=== PATIENT | male | born 1985 ===

== ENCOUNTER 2024-09-15 23:10 | Emergency (ER) | payer OTHER, SELFPAY ==
[2024-09-15 23:21] VITALS: BP 130/85; PULSE 97; O2SAT 96; BMI 31.3
--- NOTE | 2024-09-15 23:38 | XR_ITS ---
The [address] [address] Patient Name: BOZENA SEO MRN: [id number] date: 1985 Sex: M Assigned Patient Location: ER Current Patient Location: ER Accession/Order Number: [id number] Exam Date: 09/15/2024 23:44 Report Date: 09/16/2024 00:28 At the request of: MELANY MADRIGAL Procedure: XR thoracic spine 2V PLAIN FILM OF THE THORACIC SPINE. HISTORY: Back pain. Patient fell in the shower now complaining of upper back pain in right hand pain. TECHNIQUE: 3 views of the thoracic spine are submitted for review. COMPARISON: None. FINDINGS: Only a portion of the thoracic spine is seen on the lateral view, which limits evaluation. There is no evidence for acute fracture. The bone mineralization is decreased.. Disc spaces demonstrate degenerative change.. Vertebral body heights are maintained. Normal thoracic kyphosis is demonstrated. XR/XR thoracic spine 2V IMPRESSION: 1. No plain film evidence of acute fracture to the visualized portions of the thoracic spine. However, only a portion of the thoracic spine is within the [id number], please correlate with patient's point tenderness. CT scan may help better delineate. 2. If there is any clinical concern for radiating radiculopathy, MRI may help better delineate disc pathology. Electronically authenticated by: ANABELLE BOWEN Date: 09/16/2024 00:28
--- NOTE | 2024-09-15 23:38 | XR_ITS ---
The [address] [address] Patient Name: BOZENA SEO MRN: [id number] date: 1985 Sex: M Assigned Patient Location: ER Current Patient Location: ER Accession/Order Number: [id number] Exam Date: 09/15/2024 23:44 Report Date: 09/16/2024 00:29 At the request of: MELANY MADRIGAL Procedure: XR hand RT min 3V EXAM: XR hand RT min 3V HISTORY: fall COMPARISON: None. TECHNIQUE: 3 view right hand FINDINGS: No acute fracture, subluxation or dislocation. Well-preserved joint spaces and hand and wrist. Normal bone mineralization. No osseous lesion. Chronic deformity fifth metacarpal consistent with old healed fracture with slight posterior bowing. Normal soft tissues. No retained opaque foreign body or air in the tissues. No focal swelling. XR/XR hand RT min 3V IMPRESSION: 1. No acute bone or joint findings. 2. Changes of old healed fifth metacarpal fracture. Electronically authenticated by: RONEL SCHAFER Date: 09/16/2024 00:29
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
== END 2024-09-16 00:56 | disposition home or self-care (01) ==
PROVIDERS: Emergency Provider Emergency Medicine
DX: S20.229A Contusion of unspecified back wall of thorax, initial encounter (principal); S60.221A Contusion of right hand, initial encounter; W19.XXXA Unspecified fall, initial encounter
CPT/HCPCS: 72070; 73130; 99283

== ENCOUNTER 2024-09-21 10:54 | Emergency (ER) | payer OTHER, SELFPAY ==
[2024-09-21 11:02] VITALS: BP 134/88; PULSE 72; TEMP 36.7; O2SAT 99; BMI 31.7
--- NOTE | 2024-09-21 11:13 | PC.NURSE ---
no hematoma observed to back of head, skin intact and no redness, bruising or swelling to neck and back area. pt ambulating upon arrival and ROM with neck wnl. bilat pupils PERRLA with assessment. Alert, appropriate and oriented.
--- OUTSIDE RECORDS SUMMARY | 2024-09-21 11:35 | XMS_ITS | CCD ---
Author Organization [facility] Care Team Providers Care Urology Teacher Name Role Phone Unavailable Primary Care Provider UnavailLEONIE Ibanez Attending Unavailable SELF, REFERRED Primary Care Unavailable SELF, REFERRED Referring Unavailable LEONIE LEDEZMA Admitting Unavailable SELF, REFERRED Primary Care Unavailable SELF, REFERRED Referring Unavailable LEONIE LEDEZMA Admitting Unavailable LEONIE LEDEZMA Attending Unavailable Unavailable Primary Care Provider Unavailabl e Barron [facility] Pr ovider Dr. Maria Elena Orr Primary Care Provider Barron [facility] Pr ovider Barron [facility], [facility] Primary Care Pr ovider Katherine Benson Primary Care Provider [phone] MATEO FERRER Attending Unavailable KATHERINE BENSON [facility] Unavailable BARRON, ALLISAN S Primary Care Unavailabl RENALDO Dennison Referring Unavailable TANGELA JOHNSON Referring Unavailable BARRON, ALLISAN S Primary Care Unavailabl e BARRON, ALLISAN S Primary Care Unavailabl e RENALDO RICE Referring Unavailable BARRON, ALLISAN S Primary Care Unavailabl e BARRON, ALLISAN S Referring Unavailabl e BARRON, ALLISAN S Primary Care Unavailabl e BARRON, ALLISAN S Referring Unavailabl e BARRON, ALLISAN S Primary Care Unavailabl e BARRON, ALLISAN S Referring Unavailabl e BARRON, ALLISAN S Primary Care Unavailabl e DORIS RAINEY Attending Unavailable KEV FLORES Attending Unavailable BARRON, ALLISAN S Primary Care Unavailabl e LIVIA HERNANDEZHEN Referring Unavailable FEDERICO HERNANDEZ Attending Unavailable 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 UnavailSABINA Madrigal Admitting Unavailable SABINA GRAHAM Attending Unavailable ARMANDO ALEXIS [facility] Unavailabl e Allergies Allergy Classification Reported Allergen(s) Allergy Type Date of Onset Reaction(s) Facility (1 source) Citalopram Drug Allergy 01-22-2021 [place] (1 source) Escitalopram Drug Allergy 12-11-2020 [place] (1 source) FLUoxetine Drug Allergy 06-03-2021 [place] Medications Current Medications Medication Drug Class(es) Dates Sig (Normalized) Sig (Original) acetaminophen 300 mg / codeine phosphate 30 mg oral tablet (1 source) Opioid Agonist Start: 01-19-2021 End: 01-24-2021 take 1 tablet by mouth every six hours as needed for pain acetaminophen-code ine (TYLENOL/CODEINE #3) 300-30 MG per tablet Indications: Sprain of left ankle, unspecified ligament, initial encounter Take 1 tablet by mouth every 6 hours as needed for Pain for up to 5 days. 20 tablet 0 01/19/2021 01/24/2021 Active [id number] 200 actuat albuterol 0.09 mg/actuat metered dose inhaler (17 sources) beta2-Adrenergic Agonist Start: 11-18-2023 take 2 puff(s) by mouth every six hours albuterol sulfate HFA (PROVENTIL;VENTOLI N;PROAIR) 108 (90 Base) MCG/ACT inhaler Indications: Medication refill inhale 2 puffs by mouth every 6 hours if needed 18 g 5 11/18/2023 Active Start: 10-20-2022 take 2 puff(s) by mo uth every six hours albuterol sulfate HFA (PROVENTIL;VENTOLIN;PROAIR) 108 (90 Base) MCG/ACT inhaler Indications: Medication refill inhale 2 puffs by mouth every 6 hours if needed 18 g 5 10/20/2022 Active Start: 05-16-2022 albuterol sulf ate HFA (PROVENTIL;VENTOLIN;PROAIR) 108 (90 Base) MCG/ACT inhaler Indications: Medication refill Ventolin HFA 90 mcg/actuation aerosol inhaler 18 g 5 05/16/2022 Active Start: 08-12-2021 take 2 puff(s) by mo [facility] every four hours albuterol (PROVENTIL HFA;VENTOLIN HFA) 9 0 mcg/actuation inhaler Indications: Chest tightness inhale 2 puffs by mouth and INTO THE LUNGS every 4 hours if needed 18 g 1 08/12/2021 Active Start: 11-27-2020 albuterol (PRO VENTIL,VENTOLIN) 2.5 mg /3 mL (0.083 %) nebulizer solution Indications: 2019 novel coronavirus disease (COVID-19) Inhale 3 mL (2.5 mg total) by nebulization every 6 (six) hours as needed for wheezing or shortness of breath. 360 mL 0 11/27/2020 Active 24 hr amphetamine aspartate 6.25 mg / amphetamine sulfate 6.25 mg / dextroamphetamine saccharate 6.25 mg / dextroamphetamine sulfate 6.25 mg extended release oral capsule (20 sources) Central Nervous System Stimulant Start: 04-09-2024 take 1 capsule by mouth once daily amphetamine-dextroamphetamine (ADDERALL XR) 25 MG extended release capsule Indications: Attention deficit hyperactivity disorder (ADHD), unspecified ADHD type Take 1 capsule by mouth daily for 30 days. Max Daily Amount: 25 mg 30 capsule 04/09/2024 Active Start: 09-22-2022 take 1 tablet by krys once daily amphetamine-dextroamphetamine (ADDERALL) 15 MG tablet take 1 tablet by mouth in IN THE AFTERNOON daily 0 09/22/2022 Active take 1 capsule by mo [facility] once daily in the morning, then take 1 capsule by mouth every twenty-four hours amphetamine-dextroamphetamine XR (ADDERA LL XR) 25 mg 24 hr capsule Take 25 mg by mouth every morning. 0 Active aspirin 81 mg chewable tablet (16 sources) Platelet Aggregation Inhibitor, Nonsteroidal Anti-inflammatory Drug Start: 06-10-2024 take 1 tablet by mouth once daily aspirin 81 MG chewable tablet Take 1 tablet by mouth daily 90 tablet 06/10/2024 Active Start: 09-03-2021 take 1 tablet by krys once daily aspirin 81 mg chewable tablet Indications: Uncontrolled type 2 diabetes mellitus with hyperglycemia ([facility]) chew and swallow 1 tablet by mouth once daily 30 tablet 2 09/03/2021 Active atorvastatin 20 mg oral tablet (1 source) HMG-CoA Reductase Inhibitor Start: 08-29-2021 take 1 tablet by mouth once daily atorvastatin (LIPITOR) 20 mg tablet Indications: Uncontrolled type 2 diabetes mellitus with hyperglycemia ([facility]) take 1 tablet by mouth once daily 30 tablet 0 08/29/2021 Active blood-glucose meter misc (1 source) Start: 04-23-2021 blood-glucose meter misc Indications: Uncontrolled type 2 diabetes mellitus with hyperglycemia ([facility]) Glucose monitor of patient/insurance choice for BID blood sugar checks 1 each 0 04/23/2021 Active 24 hr buPROPion hydrochloride 150 mg extended release oral tablet (15 sources) Aminoketone Start: 06-10-2024 take 1 tablet by mouth once daily in the morning buPROPion (WELLBUTRIN XL) 150 MG extended release tablet Indications: Depression, unspecified depression type Take 1 tablet by mouth every morning 90 tablet 06/10/2024 Active Start: 03-29-2022 buPROPion (WEL LBUTRIN XL) 300 MG extended release tablet every morning 0 03/29/2022 Active busPIRone hydrochloride 15 mg oral tablet (15 sources) Start: 06-10-2024 take 1 tablet by mouth once daily at breakfast busPIRone (BUSPAR) 15 MG tablet Indications: Anxiety Take 15 mg by mouth daily (with breakfast) 90 tablet 06/10/2024 Active Start: 03-29-2022 busPIRone (BUS PAR) 10 MG tablet in the morning and at bedtime 0 03/29/2022 Active Continuous Blood Gluc Sensor (FREESTYLE ANTONIO 3 SENSOR) MISC (9 sources) Start: 02-27-2023 Continuous Blo od Gluc Sensor (FREESTYLE ANTONIO 3 SENSOR) MISC Change every 14 days for continuous glucose monitoring 2 each 5 02/27/2023 Active Start: 11-28-2022 Continuous Blo od Gluc Sensor (FREESTYLE ANTONIO 3 SENSOR) MISC Change every 14 days for continuous glucose monitoring 2 each 5 11/28/2022 Active Start: 09-22-2022 Continuous Blo od Gluc Sensor (FREESTYLE ANTONIO 3 SENSOR) MISC diazePAM 2 mg oral tablet (1 source) Benzodiazepine Start: 09-12-2019 End: 09-22-2019 take 1 tablet by mouth every eight hours as needed for pain diazepam (VALIUM) 2 MG tablet Indications: Multiple contusions , Contusion of ribs, right, initial encounter Take 1 tablet by mouth every 8 hours as needed for Anxiety (Pain/Spasm) for up to 10 doses. 20 tablet 0 09/12/2019 09/22/2019 Active diclofenac sodium 50 mg delayed release oral tablet (5 sources) Nonsteroidal Anti-inflammatory Drug Start: 04-06-2023 take 1 tablet by mouth twice daily diclofenac (VOLTAREN) 50 MG EC tablet Take 1 tablet by mouth 2 times daily 60 tablet 2 04/06/2023 Active Start: 12-22-2022 take 1 tablet by krys th twice daily diclofenac (VOLTAREN) 50 MG EC tablet Take 1 tablet by mouth 2 times daily 60 tablet 2 12/22/2022 Active 0.5 ml dulaglutide 3 mg/ml auto-injector (4 sources) GLP-1 Receptor Agonist Start: 05-16-2022 Dulaglutide (TRULICITY) 1.5 MG/0.5ML SOPN Inject 1.5 mg into the skin once a week 12 Adjustable Dose Pre-filled Pen Syringe 1 05/16/2022 Active empagliflozin 10 mg oral tablet (2 sources) Sodium-Glucose Cotransporter 2 Inhibitor Start: 03-31-2023 take 1 tablet by mouth once daily empagliflozin (JARDIANCE) 10 MG tablet Take 1 tablet by mouth daily 30 tablet 2 03/31/2023 Active FLUoxetine 20 mg oral capsule (1 source) Serotonin Reuptake Inhibitor Start: 01-22-2021 FLUoxetine (PROzac) 20 mg capsule furosemide 40 mg oral tablet (3 sources) Loop Diuretic Start: 02-08-2018 take 1 tablet by mouth once daily furosemide (LASIX) 40 MG tablet Take 1 tablet by mouth daily for 4 days 4 tablet 0 02/08/2018 Active glipiZIDE er 5 mg 24 hr extended release oral tablet (15 sources) Sulfonylurea Start: 04-06-2023 take 1 tablet by mouth once daily glipiZIDE (GLUCOTROL XL) 5 MG extended release tablet Indications: Type 2 diabetes mellitus without complication, without long-term current use of insulin (HCC) Take 1 tablet by mouth daily 90 tablet 1 04/06/2023 Active Start: 04-04-2022 take 1 tablet by krys th once daily glipiZIDE (GLUCOTROL XL) 5 MG extended release tablet Indications: Type 2 diabetes mellitus without complication, without long-term current use of insulin (HCC) take 1 tablet by mouth once daily 30 tablet 5 06/23/2022 Active Start: 09-02-2021 take 1 tablet by krys th once daily glipiZIDE (GLUCOTROL XL) 10 mg 24 hr tablet Indications: Uncontrolled type 2 diabetes mellitus with hyperglycemia ([facility]) take 1 tablet by mouth once daily 30 tablet 0 09/02/2021 Active glucose monitoring kit (1 source) Start: 11-18-2023 glucose monito ring kit Indications: Type 2 diabetes mellitus without complication, without long-term current use of insulin ([facility]) 1 kit by Does not apply route daily 1 kit 11/18/2023 Active hydrOXYzine hydrochloride 25 mg oral tablet (15 sources) Antihistamine Start: 06-10-2024 take 1 tablet by mouth twice daily as needed hydrOXYzine HCl (ATARAX) 25 MG tablet Indications: Anxiety Take one tab po bid prn 90 tablet 06/10/2024 Active Start: 03-05-2022 hydrOXYzine HC l (ATARAX) 25 MG tablet ibuprofen 600 mg oral tablet (20 sources) Nonsteroidal Anti-inflammatory Drug Start: 06-22-2024 End: 07-07-2024 take 1 tablet by mouth every six hours as needed for pain ibuprofen (ADVIL;MOTRIN) 600 MG tablet Take 1 tablet by mouth every 6 hours as needed for Pain 60 tablet 06/22/2024 07/07/2024 Active Start: 01-26-2024 End: 06-22-2024 take 1 tablet by mouth every eight hours as needed for pain ibuprofen (ADVIL;MOTRIN) 800 MG tablet Take 1 tablet by mouth every 8 hours as needed for Pain 60 tablet 01/26/2024 06/22/2024 Discontinued (LIST CLEANUP) Start: 06-22-2022 take 1 tablet by krys th twice daily as needed for pain ibuprofen (ADVIL;MOTRIN) 800 MG tablet Take 1 tablet by mouth 2 times daily as needed for Pain 60 tablet 2 06/22/2022 Active Start: 01-16-2020 take 1 tablet by krys th three times daily ibuprofen (ADVIL,MOTRIN) 800 mg tablet Indications: Rib pain on right side take 1 tablet by mouth three times a day 60 tablet 0 01/16/2020 Active Start: 09-12-2019 End: 01-19-2021 take 1 tablet by mouth every eight hours as needed for pain ibuprofen (ADVIL;MOTRIN) 800 MG tablet Take 1 tablet by mouth every 8 hours as needed for Pain 30 tablet 0 12/23/2020 01/19/2021 Discontinued (LIST CLEANUP) 3 ml insulin glargine 100 unt/ml pen injector (12 sources) Insulin Analog Start: 11-18-2023 inject 10 [IU] by subcutaneous injection once daily insulin glargine (LANTUS SOLOSTAR) 100 UNIT/ML injection pen Indications: Type 2 diabetes mellitus without complication, without long-term current use of insulin (HCC) Inject 10 units subcutaneously once daily 15 mL 5 11/18/2023 Active Start: 02-03-2023 insulin glargi ne (LANTUS SOLOSTAR) 100 UNIT/ML injection pen Inject 25-50 units once daily as directed by [place] medication management. 5 Adjustable Dose Pre-filled Pen Syringe 2 02/03/2023 Active Start: 10-03-2022 End: 02-03-2023 LANTUS SOLOSTAR 100 UNIT/ML injection pen 25 Units 0 10/03/2022 02/03/2023 Discontinued (LIST CLEANUP) Start: 10-03-2022 LANTUS SOLOSTA R 100 UNIT/ML injection pen insulin lispro 100 unt/ml injectable solution (1 source) Insulin Analog Start: 04-09-2024 insulin lispro (HUMALOG,ADMELOG) 100 UNIT/ML SOLN injection vial Inject 0-16 Units into the skin 3 times daily (with meals) for 6 days 3 mL 04/09/2024 Active lidocaine 0.04 mg/mg medicated patch (2 sources) Antiarrhythmic, Amide Local Anesthetic Start: 04-10-2024 apply 1 dose transdermal route once daily lidocaine 4 % external patch Place 1 patch onto the skin daily 7 patch 04/10/2024 Active Start: 09-12-2019 End: 10-12-2019 apply 1 dose transdermal route once daily lidocaine 4 % external patch Place 1 patch onto the skin daily 20 patch 0 09/12/2019 10/12/2019 Active lisinopril 2.5 mg oral tablet (1 source) Angiotensin Converting Enzyme Inhibitor Start: 08-29-2021 take 1 tablet by mouth once daily lisinopriL (PRINIVIL,ZESTRIL) 2.5 mg tablet Indications: Uncontrolled type 2 diabetes mellitus with hyperglycemia ([facility]) take 1 tablet by mouth once daily 30 tablet 0 08/29/2021 Active magnesium oxide 400 mg oral tablet (13 sources) take 1 tablet by mouth once daily magnesium oxide (MAG-OX) 400 MG tablet Take 1 tablet by mouth daily 0 Active meloxicam 7.5 mg oral tablet (3 sources) Nonsteroidal Anti-inflammatory Drug Start: 12-29-2022 take 1 tablet by mouth once daily as needed for pain meloxicam (MOBIC) 7.5 MG tablet take 1 tablet by mouth once daily NEEDED FOR PAIN 0 12/29/2022 Active metFORMIN hydrochloride 500 mg oral tablet (16 sources) Biguanide Start: 06-10-2024 take 1 tablet by mouth twice daily metFORMIN (GLUCOPHAGE) 500 MG tablet Indications: Type 2 diabetes mellitus without complication, without long-term current use of insulin ([facility]) Take one tab po bid 180 tablet 06/10/2024 Active Start: 04-06-2023 take 1 tablet by krys th at dinner metFORMIN (GLUCOPHAGE) 1000 MG tablet Take 1 tablet by mouth with breakfast and with evening meal 180 tablet 1 04/06/2023 Active Start: 11-04-2022 take 1 tablet by krys th twice daily at mealtime metFORMIN (GLUCOPHAGE) 1000 MG tablet take 1 tablet by mouth twice a day with meals 180 tablet 1 11/04/2022 Active Start: 07-16-2022 take 1 tablet by krys th twice daily at mealtime metFORMIN (GLUCOPHAGE) 1000 MG tablet Take 1 tablet by mouth 2 times daily (with meals) 180 tablet 1 07/16/2022 Active Start: 07-16-2022 take 1 tablet by krys th twice daily at mealtime metFORMIN (GLUCOPHAGE) 1000 MG tablet Take 1 tablet by mouth 2 times daily (with meals) 180 tablet 1 07/16/2022 Active Start: 08-29-2021 take 1 tablet by krys th twice daily at mealtime metFORMIN (GLUCOPHAGE) 1000 mg tablet Indications: Uncontrolled type 2 diabetes mellitus with hyperglycemia ([facility]) take 1 tablet by mouth twice a day with meals 60 tablet 0 08/29/2021 Active Multiple Vitamins-Minerals (THERAPEUTIC MULTIVITAMIN-MINERALS) tablet (7 sources) take 1 tablet by mouth once daily Multiple Vitamins-Minerals (THERAPEUTIC MULTIVITAMIN-MINERALS) tablet Take 1 tablet by mouth daily 0 Active [place]-3 Fatty Acids (FISH OIL PO) (7 sources) [place]-3 Fatty Ac ids (FISH OIL PO) Take by mouth 0 Active omeprazole 40 mg delayed release oral capsule (16 sources) Proton Pump Inhibitor Start : 06-10 take 1 capsule by mouth once daily omeprazole (PRILOSEC) 40 MG delayed release capsule Indications: Gastroesophageal reflux disease without esophagitis Take 1 capsule by mouth daily 90 capsule 06/10/2024 Active Start: 02-16-2023 take 1 capsule by mo [facility] once daily omeprazole (PRILOSEC) 40 MG delayed release capsule Indications: Medication refill take 1 capsule by mouth once daily 90 capsule 1 02/16/2023 Active Start: 08-29-2021 take 1 capsule by mo ut once daily omeprazole (PRILOSEC) 40 MG delayed release capsule Indications: Medication refill Take 1 capsule by mouth daily 90 capsule 1 08/22/2022 Active ondansetron 4 mg disintegrating oral tablet (11 sources) Serotonin-3 Receptor Antagonist Start: 11-06-2022 take 1 tablet by mouth three times daily as needed for nausea ondansetron (ZOFRAN-ODT) 4 MG disintegrating tablet Indications: Nausea Take 1 tablet by mouth 3 times daily as needed for Nausea or Vomiting 21 tablet 0 11/06/2022 Active Start: 09-12-2019 take 1 tablet by krys every eight hours as needed for nausea ondansetron (ZOFRAN ODT) 4 MG disintegrating tablet Take 1 tablet by mouth every 8 hours as needed for Nausea 10 tablet 0 09/12/2019 Active Start: 09-12-2019 End: 09-12-2019 ondansetron (ZOFRAN) injecti on 4 mg propranolol hydrochloride 20 mg oral tablet (6 sources) beta-Adrenergic Dana Start: 11-25-2022 take 0.5-1 tablets by mouth twice daily propranolol (INDERAL) 20 MG tablet take 1/2 to 1 tablet by mouth twice a day if needed 0 11/25/2022 Active SITagliptin 100 mg oral tablet (1 source) Dipeptidyl Peptidase 4 Inhibitor Start: 06-10-2024 take 1 tablet by mouth once daily SITagliptin (JANUVIA) 100 MG tablet Indications: Type 2 diabetes mellitus without complication, without long-term current use of insulin (HCC) Take 1 tablet by mouth daily 90 tablet 06/10/2024 Active Completed/Discontinued Medications Medication Drug Class(es) Dates Sig (Normalized) Sig (Original) acetaminophen 325 mg / oxyCODONE hydrochloride 5 mg oral tablet (3 sources) Opioid Agonist Start: 06-22-2024 End: 06-22-2024 take 1 tablet by mouth every twenty-four hours 1 tablet, Oral, ONCE, 1 dose, On Thu06/22/24 at 2130, Maximum dose of acetaminophen is 4000 mg from all sources in 24 hours. Start: 09-12-2019 End: 09-15-2019 oxyCODONE-acetaminophen (PER COCET) 5-325 MG per tablet Indications: Multiple contusions , Contusion of ribs, right, initial encounter Take 1 tablet by mouth every 6 hours as needed for Pain for up to 3 days. Intended supply: 3 days. Take lowest dose possible to manage pain 18 tablet 0 09/12/2019 09/15/2019 Active Start: 09-12-2019 End: 09-12-2019 oxyCODONE-acetaminophen (PER COCET) 5-325 MG per tablet 1 tablet cyclobenzaprine hydrochloride 10 mg oral tablet (2 sources) Muscle Relaxant Start: 12-23-2020 End: 01-02-2021 cyclobenzaprine (FLEXERIL) tablet 10 mg Dulaglutide (TRULICITY) 3 MG/0.5ML SOPN (9 sources) Start: 10-30-2022 End: 02-03-2023 Dulaglutide (TRULICITY) 3 MG/0.5ML SOPN Inject 3mg once weekly as directed 4 Adjustable Dose Pre-filled Pen Syringe 2 10/30/2022 02/03/2023 Discontinued (Side effects) Start: 10-30-2022 Dulaglutide (T RULICITY) 3 MG/0.5ML SOPN Inject 3mg once weekly as directed 4 Adjustable Dose Pre-filled Pen Syringe 2 10/30/2022 Active Start: 10-03-2022 End: 10-30-2022 Dulaglutide (TRULICITY) 3 MG /0.5ML SOPN Inject 3 mg into the skin once a week 2 mL 2 10/03/2022 10/30/2022 Discontinued (DUPLICATE) Start: 10-03-2022 Dulaglutide (T RULICITY) 3 MG/0.5ML SOPN Inject 3 mg into the skin once a week 2 mL 2 10/03/2022 Active 1 ml HYDROmorphone hydrochloride 1 mg/ml cartridge (1 source) Opioid Agonist Start: 09-12-2019 End: 09-12-2019 HYDROmorphone (DILAUDID) injection 1 mg Start: 09-12-2019 End: 09-12-2019 HYDROmorphone (DILAUDID) inj ection 1 mg Iohexol (1 source) Radiographic Contrast Agent Start: 09-12-2019 End: 09-12-2019 iohexol (OMNIPAQUE 350) solution 75 mL 1 ml morphine sulfate 4 mg/ml cartridge (1 source) Opioid Agonist Start: 09-12-2019 End: 09-12-2019 morphine injection 4 mg Start: 09-12-2019 End: 09-12-2019 morphine injection 4 mg 2 ml orphenadrine citrate 30 mg/ml injection (1 source) Muscle Relaxant Start: 09-12-2019 End: 09-12-2019 orphenadrine (NORFLEX) injection 60 mg Start: 09-12-2019 End: 09-12-2019 orphenadrine (NORFLEX) injec tion 60 mg Semaglutide,0.25 or 0.5MG/DO S, (OZEMPIC, 0.25 OR 0.5 MG/DOSE,) 2 MG/3ML SOPN (2 sources) Start: 02-03-2023 End: 03-31-2023 Semaglutide,0.25 or 0.5MG/DO S, (OZEMPIC, 0.25 OR 0.5 MG/DOSE,) 2 MG/3ML SOPN Inject 0.25mg once weekly for 4 weeks then increase to 0.5mg weekly 3 mL 1 02/03/2023 03/31/2023 Discontinued (Cost of medication) Start: 02-03-2023 Semaglutide,0. 25 or 0.5MG/DOS, (OZEMPIC, 0.25 OR 0.5 MG/DOSE,) 2 MG/3ML SOPN Inject 0.25mg once weekly for 4 weeks then increase to 0.5mg weekly 3 mL 1 02/03/2023 Active NEGATED: Highlighted row has not occurred!drug or medication (1 source) Problems Active Problems Problem Classification Problem Date Documented Date Episodic/Chronic Anxiety disorders (1 source) Anxiety; Translations: [Anxiety disorder, unspecified] Onset: 06-12-2024 06-12-2024 Chronic Asthma (15 sources) Asthma; Translations: [Unspecified asthma, uncomplicated] Onset: 04-04-2022 04-04-2022 Chronic Attention-deficit, conduct, and disruptive behavior disorders (15 sources) Attention deficit hyperactivity disorder; Translations: [Attention-deficit hyperactivity disorder, unspecified type] Onset: 03-07-2020 04-04-2022 Chronic Attention-deficit, conduct, and disruptive behavior disorders (1 source) Attention-deficit hyperactivity disorder, unspecified type; Translations: [Attention-deficit hyperactivity disorder, unspecified type] Onset: 04-04-2022 Chronic Deficiency and other anemia (1 source) Increased hemoglobin; Translations: [Other hemoglobinopathies] Chronic Diabetes mellitus without complication (19 sources) Type 2 diabetes mellitus without complication; Translations: [Type 2 diabetes mellitus without complications] Onset: 03-06-2020 04-04-2022 Chronic Disorders of lipid metabolism (1 source) Mixed hyperlipidemia; Translations: [Mixed hyperlipidemia] Onset: 06-12-2024 06-12-2024 Chronic E Codes: Fall (1 source) Fall Esophageal disorders (15 sources) Gastroesophageal reflux disease; Translations: [Gastro-esophageal reflux disease without esophagitis] Onset: 04-04-2022 04-04-2022 Chronic Headache; including migraine (16 sources) Ophthalmic migraine; 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 with aura, not intractable, without status migrainosus] Onset: 08-29-2016 04-04-2022 Chronic Immunizations and screening for infectious disease (1 source) Patient encounter status; Translations: [Encounter for screening for human immunodeficiency virus [HIV]] Episodic Influenza (1 source) Influenza Onset: 11-07-2023 Mood disorders (1 source) Depressive disorder; Translations: [Depression] Onset: 06-12-2024 06-12-2024 Chronic Open wounds of extremities (3 sources) Puncture wound without foreign body of right hand, initial encounter; Translations: [Open wound of hand except finger(s) alone, without mention of complication] Onset: 05-04-2024 Episodic Other endocrine disorders (2 sources) Male hypogonadism; Translations: [Testicular hypofunction] Onset: 04-02-2023 04-02-2023 Chronic Other endocrine disorders (1 source) Testicular hypofunction; Translations: [Testicular hypofunction] Onset: 04-02-2023 Chronic Other fractures (1 source) Closed fracture of multiple left and right ribs; Translations: [Multiple fractures of ribs, bilateral, initial encounter for closed fracture] Onset: 04-07-2024 04-07-2024 Episodic Other injuries and conditions due to external causes (1 source) Injury of toe of right foot; Translations: [Unspecified injury of right foot, initial encounter] Episodic Other injuries and conditions due to external causes (1 source) Unspecified injury of thorax, initial encounter; Translations: [Unspecified injury of thorax, initial encounter] Onset: 01-26-2024 Episodic Other injuries and conditions due to external causes (2 sources) Unspecified injury of head, initial encounter; Translations: [Unspecified injury of head, initial encounter] Onset: 06-11-2023 Episodic Other injuries and conditions due to external causes (1 source) Injury of head; Translations: [Unspecified injury of head, initial encounter] 06-22-2024 Episodic Other liver diseases (16 sources) Steatosis of liver; Translations: [Fatty (change of) liver, not elsewhere classified] Onset: 05-25-2018 04-04-2022 Chronic Other liver diseases (1 source) Fatty (change of) liver, not elsewhere classified; Translations: [Fatty (change of)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 BONES/ALIGNMENT: Normal alignment of the thoracic spine. No acute fracture. DEGENERATIVE CHANGES: No significant degenerative changes. SOFT TISSUES: No paraspinal mass. LUMBAR SPINE: BONES/ALIGNMENT: Normal lumbar lordosis. No acute fracture.. DEGENERATIVE CHANGES: No significant degenerative changes. SOFT TISSUES: No paraspinal mass. IMPRESSION: CT CHEST ABDOMEN PELVIS: No evidence for acute solid organ injury. Mixture of patchy broad ground-glass attenuation and underlying streaky and nodular densities in the posterior lung bases most pronounced on the right. Compatible with subsegmental atelectasis and pulmonary contusion/hemorrhage in the setting of significant trauma. Small left pleural effusion. No pneumothorax. Acute nondisplaced fractures anterior right 3rd, 4th and 5th ribs. Acute nondisplaced left 5th, 6th, 7th and 8th rib fractures along the anterior/anterolater al convexity. 3 nodules measuring 2-3 mm in the left upper lobe unchanged and require no follow-up. CT THORACIC SPINE: No acute osseous abnormality. CT LUMBAR SPINE: No acute osseous abnormality. Interpreted by: Adama Gomes MD Signed by: Adama Gomes MD 04/07/24 Final result Normal [facility] CT HEAD WO CONTRASTon 2023 CT HEAD WO CONTRAST EXAMINATION: CT OF THE HEAD WITHOUT CONTRAST; CT OF THE CERVICAL SPINE WITHOUT CONTRAST 04/07/2024 6:26 am TECHNIQUE: CT of the head was performed without the administration of intravenous contrast. Automated exposure control, iterative reconstruction, and/or weight based adjustment of the mA/kV was utilized to reduce the radiation dose to as low as reasonably achievable.; CT of the cervical spine was performed without the administration of intravenous contrast. Multiplanar reformatted images are provided for review. Automated exposure control, iterative reconstruction, and/or weight based adjustment of the mA/kV was utilized to reduce the radiation dose to as low as reasonably achievable. COMPARISON: 06/11/2023 HISTORY: ORDERING SYSTEM PROVIDED HISTORY: fell off of roof TECHNOLOGIST PROVIDED HISTORY: fell off of roof Decision Support Exception - unselect if not a suspected or confirmed emergency medical condition->Emergency Medical Condition ([place]) Reason for Exam: fall FINDINGS: HEAD: BRAIN/VENTRICLES: There is no acute intracranial hemorrhage, mass effect or midline shift. No abnormal extra-axial fluid collection. The tyson-white differentiation is maintained. There is no evidence of hydrocephalus. ORBITS: The visualized portion of the orbits demonstrate no acute abnormality. SINUSES: The visualized paranasal sinuses and mastoid air cells demonstrate no acute abnormality. SOFT TISSUES/SKULL: No acute abnormality of the visualized skull or soft tissues. CERVICAL SPINE: BONES/ALIGNMENT: There is no evidence of an acute cervical spine fracture. No traumatic malalignment. DEGENERATIVE CHANGES: No significant degenerative changes. SOFT TISSUES: There is no prevertebral soft tissue swelling. IMPRESSION: CT HEAD: No CT evidence for acute intracranial abnormality.. CT CERVICAL SPINE: No acute fracture or subluxation of the cervical spine. Interpreted by: Adama Gomes MD Signed by: Adama Gomes MD 04/07/24 Final result Normal [facility] CT LUMBAR SPINE BONY RECONST RUCTIONon 04-07-2024 CT LUMBAR SPINE BONY RECONSTRUCTION EXAMINATION: CT OF THE CHEST, ABDOMEN, AND PELVIS WITH CONTRAST; CT OF THE LUMBAR SPINE WITHOUT CONTRAST; CT OF THE THORACIC SPINE WITHOUT CONTRAST 04/07/2024 6:26 am TECHNIQUE: CT of the chest, abdomen and pelvis was performed with the administration of intravenous contrast. Multiplanar reformatted images are provided for review. Automated exposure control, iterative reconstruction, and/or weight based adjustment of the mA/kV was utilized to reduce the radiation dose to as low as reasonably achievable.; CT of the lumbar spine was performed without the administration of intravenous contrast. Multiplanar reformatted images are provided for review. Adjustment of mA and/or kV according to patient size was utilized. Automated exposure control, iterative reconstruction, and/or weight based adjustment of the mA/kV was utilized to reduce the radiation dose to as low as reasonably achievable.; CT of the thoracic spine was performed without the administration of intravenous contrast. Multiplanar reformatted images are provided for review. Automated exposure control, iterative reconstruction, and/or weight based adjustment of the mA/kV was utilized to reduce the radiation dose to as low as reasonably achievable. COMPARISON: 06/11/2023 HISTORY: ORDERING SYSTEM PROVIDED HISTORY: fell off of roof, significant chest wall pain bilaterally, L shoulder pain, L hip pain TECHNOLOGIST PROVIDED HISTORY: fell off of roof, significant chest wall pain bilaterally, L shoulder pain, L hip pain Decision Support Exception - unselect if not a suspected or confirmed emergency medical condition->Emergency Medical Condition ([place]) Reason for Exam: fall FINDINGS: Chest: Mediastinum: The cardiac size is normal. . There is no significant mediastinal, hilar or axillary lymphadenopathy. The thyroid gland shows no significant abnormalities. The esophagus shows no significant abnormalities. Lungs/pleura: There is small left pleural effusion. There is broad patchy ground-glass attenuation posterior basal right lower lobe with some underlying streaky densities and small nodular airspace densities. Similar but far less pronounced findings twisted in the posterior basal left lower lobe. Findings compatible with combination of subsegmental atelectasis and probable pulmonary hemorrhage in the setting of trauma. No pneumothorax. There are 3 nodules 2-3 mm in size noted in the left upper lobe on series 5 image 56, 60, and 67. These are unchanged and require no specific follow-up. Soft Tissues/Bones: Acute nondisplaced fractures anterior right 3rd, 4th and 5th ribs. Acute nondisplaced left 5th, 6th, 7th and 8th rib fractures along the anterior/anterolater al convexity. There are old anterior left 3rd 4th and 5th rib fractures. ABDOMEN/PELVIS: Organs: Liver consistent, pancreas, kidneys and gallbladder show no acute process. 9 mm fat density nodule left adrenal gland compatible with myelolipoma. Unchanged. No follow-up recommended. GI/Bowel: There is limited evaluation due to absence of oral contrast. The stomach shows no focal lesions. Small bowel loops normal in caliber showing no focal abnormalities. No evidence for appendicitis. Evaluation of the colon shows no acute process. Pelvis: Unremarkable urinary bladder. No acute process evident in the pelvis. Peritoneum/Retroperi toneum: No free intraperitoneal fluid or significant lymphadenopathy. No free intraperitoneal air. No abnormal fluid collections. Bones/Soft Tissues: No acute abnormality of the bones. The superficial soft tissues show no acute process. THORACIC SPINE: BONES/ALIGNMENT: Normal alignment of the thoracic spine. No acute fracture. DEGENERATIVE CHANGES: No significant degenerative changes. SOFT TISSUES: No paraspinal mass. LUMBAR SPINE: BONES/ALIGNMENT: Normal lumbar lordosis. No acute fracture.. DEGENERATIVE CHANGES: No significant degenerative changes. SOFT TISSUES: No paraspinal mass. IMPRESSION: CT CHEST ABDOMEN PELVIS: No evidence for acute solid organ injury. Mixture of patchy broad ground-glass attenuation and underlying streaky and nodular densities in the posterior lung bases most pronounced on the right. Compatible with subsegmental atelectasis and pulmonary contusion/hemorrhage in the setting of significant trauma. Small left pleural effusion. No pneumothorax. Acute nondisplaced fractures anterior right 3rd, 4th and 5th ribs. Acute nondisplaced left 5th, 6th, 7th and 8th rib fractures along the anterior/anterolater al convexity. 3 nodules measuring 2-3 mm in the left upper lobe unchanged and require no follow-up. CT THORACIC SPINE: No acute osseous abnormality. CT LUMBAR SPINE: No acute osseous abnormality. Interpreted by: Adama Gomes MD Signed by: Adama Gomes MD 04/07/24 Final result Normal [facility] CT THORACIC SPINE BONY RECON STRUCTIONon 04-07-2024 CT THORACIC SPINE BONY RECONSTRUCTION EXAMINATION: CT OF THE CHEST, ABDOMEN, AND PELVIS WITH CONTRAST; CT OF THE LUMBAR SPINE WITHOUT CONTRAST; CT OF THE THORACIC SPINE WITHOUT CONTRAST 04/07/2024 6:26 am TECHNIQUE: CT of the chest, abdomen and pelvis was performed with the administration of intravenous contrast. Multiplanar reformatted images are provided for review. Automated exposure control, iterative reconstruction, and/or weight based adjustment of the mA/kV was utilized to reduce the radiation dose to as low as reasonably achievable.; CT of the lumbar spine was performed without the administration of intravenous contrast. Multiplanar reformatted images are provided for review. Adjustment of mA and/or kV according to patient size was utilized. Automated exposure control, iterative reconstruction, and/or weight based adjustment of the mA/kV was utilized to reduce the radiation dose to as low as reasonably achievable.; CT of the thoracic spine was performed without the administration of intravenous contrast. Multiplanar reformatted images are provided for review. Automated exposure control, iterative reconstruction, and/or weight based adjustment of the mA/kV was utilized to reduce the radiation dose to as low as reasonably achievable. COMPARISON: 06/11/2023 HISTORY: ORDERING SYSTEM PROVIDED HISTORY: fell off of roof, significant chest wall pain bilaterally, L shoulder pain, L hip pain TECHNOLOGIST PROVIDED HISTORY: fell off of roof, significant chest wall pain bilaterally, L shoulder pain, L hip pain Decision Support Exception - unselect if not a suspected or confirmed emergency medical condition->Emergency Medical Condition (MA) Reason for Exam: fall FINDINGS: Chest: Mediastinum: The cardiac size is normal. . There is no significant mediastinal, hilar or axillary lymphadenopathy. The thyroid gland shows no significant abnormalities. The esophagus shows no significant abnormalities. Lungs/pleura: There is small left pleural effusion. There is broad patchy ground-glass attenuation posterior basal right lower lobe with some underlying streaky densities and small nodular airspace densities. Similar but far less pronounced findings twisted in the posterior basal left lower lobe. Findings compatible with combination of subsegmental atelectasis and probable pulmonary hemorrhage in the setting of trauma. No pneumothorax. There are 3 nodules 2-3 mm in size noted in the left upper lobe on series 5 image 56, 60, and 67. These are unchanged and require no specific follow-up. Soft Tissues/Bones: Acute nondisplaced fractures anterior right 3rd, 4th and 5th ribs. Acute nondisplaced left 5th, 6th, 7th and 8th rib fractures along the anterior/anterolater al convexity. There are old anterior left 3rd 4th and 5th rib fractures. ABDOMEN/PELVIS: Organs: Liver consistent, pancreas, kidneys and gallbladder show no acute process. 9 mm fat density nodule left adrenal gland compatible with myelolipoma. Unchanged. No follow-up recommended. GI/Bowel: There is limited evaluation due to absence of oral contrast. The stomach shows no focal lesions. Small bowel loops normal in caliber showing no focal abnormalities. No evidence for appendicitis. Evaluation of the colon shows no acute process. Pelvis: Unremarkable urinary bladder. No acute process evident in the pelvis. Peritoneum/Retroperi toneum: No free intraperitoneal fluid or significant lymphadenopathy. No free intraperitoneal air. No abnormal fluid collections. Bones/Soft Tissues: No acute abnormality of the bones. The superficial soft tissues show no acute process. THORACIC SPINE: BONES/ALIGNMENT: Normal alignment of the thoracic spine. No acute fracture. DEGENERATIVE CHANGES: No significant degenerative changes. SOFT TISSUES: No paraspinal mass. LUMBAR SPINE: BONES/ALIGNMENT: Normal lumbar lordosis. No acute fracture.. DEGENERATIVE CHANGES: No significant degenerative changes. SOFT TISSUES: No paraspinal mass. IMPRESSION: CT CHEST ABDOMEN PELVIS: No evidence for acute solid organ injury. Mixture of patchy broad ground-glass attenuation and underlying streaky and nodular densities in the posterior lung bases most pronounced on the right. Compatible with subsegmental atelectasis and pulmonary contusion/hemorrhage in the setting of significant trauma. Small left pleural effusion. No pneumothorax. Acute nondisplaced fractures anterior right 3rd, 4th and 5th ribs. Acute nondisplaced left 5th, 6th, 7th and 8th rib fractures along the anterior/anterolater al convexity. 3 nodules measuring 2-3 mm in the left upper lobe unchanged and require no follow-up. CT THORACIC SPINE: No acute osseous abnormality. CT LUMBAR SPINE: No acute osseous abnormality. Interpreted by: Adama Gomes MD Signed by: Adama Gomes MD 04/07/24 Final result Normal [facility] Creatinine w/GFR, POCon 03-11 Creatinine [Mass/Vol] 0.5 mg/dL Low 0.51-1.[address] [facility] GFR/1.73 sq M.predicted among non-blacks MDRD (S/P/Bld) [Vol rate/Area] mL/min/{1.73_m2} Normal >60 [facility] Comment on above: Result Comment: These results are not intended for use in patients <18 years of age. eGFR results are calculated without a race factor using the 2020 CKD-EPI equation. Careful clinical correlation is recommended, particularly when comparing to results calculated using previous equations. The CKD-EPI equation is less accurate in patients with extremes of muscle mass, extra-renal metabolism of creatine, excessive creatine ingestion, or following therapy that affects renal tubular secretion. Drug Scr, Abuse, Uron 2023 Amphetamine(s),Ur Positive Abnormal NEG [facility] Comment on above: Result Comment: Cuto ff: 1000 ng/mL Performed By: #### E RTPF #### [facility] [address] [place] [address] [id number] Economics Instructor: Frankie Cha MD Cannabinoid(s),Ur Positive Abnormal NEG [facility] Comment on above: Result Comment: Cuto ff: 50 ng/ml Performed By: #### E RTPF #### [facility] [address] [place] [address] [id number] Economics Instructor: Frankie Cha MD Cocaine Metabolite Positive Abnormal NEG [facility] Comment on above: Result Comment: Cuto ff: 300 ng/ml Performed By: #### E RTPF #### [address] [id number] Economics Instructor: Frankie Cha MD Fentanyl, Urine Positive Abnormal NEG [facility] Comment on above: Result Comment: Cuto ff: 5 ng/ml Performed By: #### E RTPF #### [address] [address] Economics Instructor: Frankie Cha MD Interpretive Info Assay provides rapid clinical screening only. Presumptive positive results for Normal [facility] Comment on above: Result Comment: lega l purposes should be confirmed by another method. To request confirmation, please call the lab within 7 days of sample submission. Performed By: #### E RTPF #### [address] [id number] Economics Instructor: Franike Cha MD Oxycodone, Urine Positive Abnormal NEG [facility] Comment on above: Result Comment: Cuto ff: 100 ng/ml Performed By: #### E RTPF #### [address] [address] Economics Instructor: Frankie Cha MD Barbiturate(s),Ur Negative Normal NEG [facility] Comment on above: Result Comment: Cuto ff: 200 ng/ml Performed By: #### E RTPF #### [address] [address] Economics Instructor: Frankie Cha MD Benzodiazepine(s) Negative Normal NEG [facility] Comment on above: Result Comment: Cuto ff: 200 ng/ml Performed By: #### E RTPF #### [address] [address] Economics Instructor: Frankie Cha MD Methadone Ql (U) Negative Normal NEG [facility] Comment on above: Result Comment: Cuto ff: 300 ng/ml Performed By: #### E RTPF #### [address] [address] Economics Instructor: Frankie Cha MD Opiate(s), Ur Negative Normal NEG [facility] Comment on above: Result Comment: Cuto ff: 300 ng/ml Performed By: #### E RTPF #### [address] [address] Economics Instructor: Frankie Cha MD Phencyclidine, Ur Negative Normal NEG [facility] Comment on above: Result Comment: Cuto ff: 25 ng/ml Performed By: #### E RTPF #### [address] [address] Economics Instructor: Frankie Cha MD Glucose,Whole Bloodon 2023 Glucose [Mass/Vol] 145 mg/dL High 75-110 [facility] Glucose [Mass/Vol] 284 mg/dL High 75-110 [facility] Glucose [Mass/Vol] 198 mg/dL High 75-110 [facility] Trauma Profileon 04-07-2024 Anion gap [Moles/Vol] 13 mmol/L Normal 9-[address] [facility] Comment on above: Performed By: #### E RTPF #### [address] [address] Economics Instructor: Frankie Cha MD Chloride [Moles/Vol] 100 mmol/L Normal 98-107 [facility] Comment on above: Performed By: #### E RTPF #### [address] [address] Economics Instructor: Frankie Cha MD CO2 [Moles/Vol] 23 mmol/L Normal 20-31 [facility] Comment on above: Performed By: #### E RTPF #### [address] [address] Economics Instructor: Frankie Cha MD Creatinine [Mass/Vol] 0.7 mg/dL Normal 0.70-1.[address] [facility] Comment on above: Performed By: #### E RTPF #### [address] [address] Economics Instructor: Frankie Cha MD Ethanol [Mass/Vol] mg/dL Normal <10 [facility] Comment on above: Performed By: #### E RTPF #### [address] [address] Economics Instructor: Frankie Cha MD Ethanol percent <0.010 Normal <0.010 [facility] Comment on above: Performed By: #### E RTPF #### [address] [address] Economics Instructor: Frankie Cha MD GFR/1.73 sq M.predicted among non-blacks MDRD (S/P/Bld) [Vol rate/Area] mL/min/{1.73_m2} Normal >60 [facility] Comment on above: Result Comment: These results are not intended for use in patients <18 years of age. eGFR results are calculated without a race factor using the 2020 CKD-EPI equation. Careful clinical correlation is recommended, particularly when comparing to results calculated using previous equations. The CKD-EPI equation is less accurate in patients with extremes of muscle mass, extra-renal metabolism of creatine, excessive creatine ingestion, or following therapy that affects renal tubular secretion. Performed By: #### E RTPF #### [address] [address] Economics Instructor: Frankie Cha MD Glucose [Mass/Vol] 246 mg/dL High 74-99 [facility] Comment on above: Performed By: #### E RTPF #### [address] [address] Economics Instructor: Frankie Cha MD Potassium [Moles/Vol] 3.8 mmol/L Normal 3.7-5.[address] [facility] Comment on above: Performed By: #### E RTPF #### [address] [address] Economics Instructor: Frankie Cha MD Sodium [Moles/Vol] 136 mmol/L Normal 136-145 [facility] Comment on above: Performed By: #### E RTPF #### [address] [address] Economics Instructor: Frankie Cha MD Urea nitrogen [Mass/Vol] 8 mg/dL Normal 6-20 [facility] Comment on above: Performed By: #### E RTPF #### [address] [address] Economics Instructor: Frankie Cha MD aPTT Coag (Bld) [Time] 31.2 s Normal 23.0-36.5 [facility] Comment on above: Result Comment: IV Heparin Therapy Range: 66.0-92.0 sec Performed By: #### E RTPF #### [address] [address] Economics Instructor: Frankie Cha MD INR Coag (PPP) [Relative time] 1.0 {INR} Normal [facility] Comment on above: Result Comment: Therapeutic Range: Moderate Anticoagulant Intensity: INR = 2.0-3.0 High Anticoagulant Intensity: INR = 2.5-3.5 Performed By: #### E RTPF #### [address] [address] Economics Instructor: Frankie Cha MD PT Coag (PPP) [Time] 13.2 s Normal 11.7-14.9 [facility] Comment on above: Performed By: #### E RTPF #### [address] [address] Economics Instructor: Frankie Cha MD Erythrocyte distribution width (RBC) [Ratio] 11.9 % Normal 11.8-14.4 [facility] Comment on above: Performed By: #### E RTPF #### [address] [address] Economics Instructor: Frankie Cha MD Hematocrit (Bld) [Volume fraction] 45.0 % Normal 40.7-50.3 [facility] Comment on above: Performed By: #### E RTPF #### [address] [address] Economics Instructor: Frankie Cha MD Hemoglobin (Bld) [Mass/Vol] 15.0 g/dL Normal 13.0-17.0 [facility] Comment on above: Performed By: #### E RTPF #### [address] [address] Economics Instructor: Frankie Cha MD MCH (RBC) [Entitic mass] 28.0 pg Normal 25.2-33.5 [facility] Comment on above: Performed By: #### E RTPF #### [address] [address] Economics Instructor: Frankie Cha MD MCHC (RBC) [Mass/Vol] 33.3 g/dL Normal 28.4-34.[address] [facility] Comment on above: Performed By: #### E RTPF #### [address] [address] Economics Instructor: Frankie Cha MD MCV (RBC) [Entitic vol] 84.1 fL Normal 82.6-102.9 [facility] Comment on above: Performed By: #### E RTPF #### [address] [address] Economics Instructor: Frankie Cha MD NRBC Automated 0.0 per 100 WBC Normal 0.0 [facility] Comment on above: Performed By: #### E RTPF #### [address] [address] Economics Instructor: Frankie Cha MD Platelet mean volume (Bld) [Entitic vol] 10.1 fL Normal 8.1-13.5 [facility] Comment on above: Performed By: #### E RTPF #### [address] [address] Economics Instructor: Frankie Cha MD Platelets (Bld) [#/Vol] 386 10*3/uL Normal 138-453 [facility] Comment on above: Performed By: #### E RTPF #### [address] [address] Economics Instructor: Frankie Cha MD RBC (Bld) [#/Vol] 5.35 10*6/uL Normal 4.21-5.77 [facility] Comment on above: Performed By: #### E RTPF #### [address] [address] Economics Instructor: Frankie Cha MD WBC (Bld) [#/Vol] 10.2 10*3/uL Normal 3.5-11.3 [facility] Comment on above: Performed By: #### E RTPF #### [address] [address] Economics Instructor: Frankie Cha MD Blood Bank BILL FOR SERVICES PERFORMED Normal [facility] Comment on above: Performed By: #### E RTPF #### [address] [address] Economics Instructor: Frankie Cha MD Type + Screenon 04-07-2024 Type + Screen Sample Expiration 04/10/2024,2359 Arm Band Number BE [id number] ABO/Rh(D) A POSITIVE Antibody Screen NEGATIVE Normal [facility] Comment on above: Performed By: #### T YS #### [address] [address] Economics Instructor: Frankie Cha MD Venous Blood Gaseson 024 Body Temp. 37.0 Normal [facility] Comment on above: Performed By: #### E RTPF #### [address] [address] Economics Instructor: Frankie Cha MD Carboxy Hgb 4.5 % Normal 0-5 [facility] Comment on above: Result Comment: Reference Range: Non-Smokers 0-2% Average Smoker 2-4% Heavy Smoker <10% Performed By: #### E RTPF #### [address] [address] Economics Instructor: Frankie Cha MD FIO2 INFORMATION NOT PROVIDED Normal [facility] Comment on above: Performed By: #### E RTPF #### [address] [address] Economics Instructor: Frankie Cha MD HCO3 (Bld) [Moles/Vol] 26.6 mmol/L Normal 24-30 [facility] Comment on above: Performed By: #### E RTPF #### [address] [address] Economics Instructor: Frankie Cha MD Oxygen saturation in Blood 75.8 % Normal 60.0-85.0 [facility] Comment on above: Performed By: #### E RTPF #### [address] [address] Economics Instructor: Frankie Cha MD pCO2 48.5 mm Hg Normal 39-55 [facility] Comment on above: Performed By: #### E RTPF #### [facility] [employer] [address] [place] [address] Economics Instructor: Frankie Cha MD pH (Bld) 7.358 [pH] Normal 7.320-7.420 [facility] Comment on above: Performed By: #### E RTPF #### [facility] [employer] [address] [place] [address] Economics Instructor: Frankie Cha MD pO2 40.0 mm Hg Normal 30-50 [facility] Comment on above: Performed By: #### E RTPF #### [facility] [employer] [address] [place] [address] Economics Instructor: Frankie Cha MD Positive Base Excess 0.9 mmol/L Normal 0.0-2.0 [facility] Comment on above: Performed By: #### E RTPF #### [facility] [employer] [address] [place] [address] Economics Instructor: Frankie Cha MD XR CHEST PORTABLEon 04-07-20 XR CHEST PORTABLE EXAMINATION: ONE XRAY VIEW OF THE CHEST 04/07/2024 9:23 am COMPARISON: None. HISTORY: ORDERING SYSTEM PROVIDED HISTORY: Trauma, rib fractures TECHNOLOGIST PROVIDED HISTORY: Trauma, rib fractures Reason for Exam: Fall off roof/Rib fxs.?Ap erect/port. FINDINGS: The lungs are without acute focal process. There is no effusion or pneumothorax. The cardiomediastinal silhouette is without acute process. The osseous structures are without acute process. IMPRESSION: No acute process. Interpreted by: Anibal Rivers MD Signed by: Anibal Rivers MD 04/07/24 Final result Normal [facility] XR ELBOW LEFT (MIN 3 VIEWS)o n 04-07-2024 XR ELBOW LEFT (MIN 3 VIEWS) EXAMINATION: THREE XRAY VIEWS OF THE LEFT ELBOW 04/07/2024 8:43 am COMPARISON: None. HISTORY: ORDERING SYSTEM PROVIDED HISTORY: trauma TECHNOLOGIST PROVIDED HISTORY: trauma Reason for Exam: Fall off roof/pain/port. FINDINGS: There is no elbow effusion. There is no acute fracture or dislocation. Alignment is normal. IMPRESSION: No acute abnormality. Interpreted by: Anibal Rivers MD Signed by: Anibal Rivers MD 04/07/24 Final result Normal [facility] XR ELBOW RIGHT (MIN 3 VIEWS) on 04-07-2024 XR ELBOW RIGHT (MIN 3 VIEWS) EXAMINATION: THREE XRAY VIEWS OF THE RIGHT ELBOW 04/07/2024 8:43 am COMPARISON: None. HISTORY: ORDERING SYSTEM PROVIDED HISTORY: trauma TECHNOLOGIST PROVIDED HISTORY: trauma Reason for Exam: Fall off roof/pain/port. FINDINGS: There is no elbow effusion. There is no acute fracture or dislocation. Alignment is normal. IMPRESSION: No acute abnormality. Interpreted by: Anibal Rivers MD Signed by: Anibal Rivers MD 04/07/24 Final result Normal [facility] XR SHOULDER LEFT (MIN 2 VIEW S)on 04-07-2024 XR SHOULDER LEFT (MIN 2 VIEWS) EXAMINATION: XRAY VIEWS OF THE LEFT SHOULDER 04/07/2024 5:45 am COMPARISON: None. HISTORY: ORDERING SYSTEM PROVIDED HISTORY: point tenderness to shoulder, fell off of roof onto L side TECHNOLOGIST PROVIDED HISTORY: point tenderness to shoulder, fell off of roof onto L side FINDINGS: Three views of the left shoulder demonstrates no evidence of acute fracture dislocation. The joint spaces are maintained. No osseous destructive lesion. The visualized left lung is clear. IMPRESSION: No acute fracture dislocation. Interpreted by: Lizandro Sapp MD Signed by: Lizandro Sapp MD 04/07/24 Final result Normal [facility] XR CHEST (2 VW)on 01-26-2024 XR CHEST (2 VW) EXAMINATION: TWO XRAY VIEWS OF THE CHEST 01/26/2024 10:43 pm COMPARISON: 10/07/2021, thoracic spine CT on 06/11/2023 HISTORY: ORDERING SYSTEM PROVIDED HISTORY: Fall, left rib pain TECHNOLOGIST PROVIDED HISTORY: Fall, left rib pain Reason for Exam: Lt rib pain; fell FINDINGS: Cardiac and mediastinal silhouettes appear within normal limits for size. No pneumothorax is identified. No definite rib fracture or other acute osseous abnormality is seen on this two view study. Mild degenerative changes are seen within the spine. Thoracic vertebral body heights are unchanged from the previous examination. IMPRESSION: No left-sided rib fracture, pneumothorax or other acute process is seen. Interpreted by: James Rossi MD Signed by: James Rossi MD 01/26/24 Final result Normal [facility] Hemoglobin A1Con 11-18-2023 Glucose [Mass/Vol] 249 mg/dL Normal [facility] Comment on above: Result Comment: The ADA and AACC recommend providing the estimated average glucose result to permit better patient understanding of their HBA1c result. Performed By: #### G LYHGB #### [facility] [address] [place], [place] [id number] Economics Instructor: Frankie Cha MD HbA1c (Bld) [Mass fraction] 10.3 % High 4.0-6.0 [facility] Comment on above: Performed By: #### G LYHGB #### [facility] [employer] [address] [place], [place] [id number] Economics Instructor: Frankie Cha MD POCT Influenza A/Influenza B /SARS-COV-2 [facility] 11-07-2023 External Poct Influenza A Antigen Positive [facility] External Poct Influenza B Antigen Negative [facility] Interpretation and review of laboratory results Normal [facility] SARS-CoV-2 (COVID-19) Ag IA.rapid Ql (Resp) Negative [facility] XR RIBS RIGHT INCLUDE CHEST (MIN 3 VIEWS)on 06-25-2023 XR RIBS RIGHT INCLUDE CHEST (MIN 3 VIEWS) EXAMINATION: 4 XRAY VIEWS OF THE RIGHT RIBS WITH FRONTAL XRAY VIEW OF THE CHEST 06/24/2023 1:35 pm COMPARISON: 10/07/2021 HISTORY: ORDERING SYSTEM PROVIDED HISTORY: Rib pain on right side TECHNOLOGIST PROVIDED HISTORY: Right rib pain since roof fall 06/11/2023 Reason for Exam: Pt eval for pain s/p fall c/o right side rib pain FINDINGS: There are acute traumatic fractures of the anterior right 5th and 6th ribs, minimally displaced. Lungs are clear without focal consolidation or pulmonary edema. No evidence of pleural effusion or pneumothorax. Cardiomediastinal silhouette and bony thorax demonstrate no acute abnormality. IMPRESSION: Acute traumatic minimally displaced anterior right 5th and 6th rib fractures. No pneumothorax or acute process in the lungs. The findings were sent to the [facility] at 6:28 am on 06/25/2023 to be communicated to a licensed caregiver. Interpreted by: Saad Amezcua MD Signed by: Saad Amezcua MD 06/25/23 Final result Normal [facility] Basic Metabolic Profon 06-11 Anion gap [Moles/Vol] 11 mmol/L Normal 9-17 [facility] Comment on above: Performed By: #### B MP, CDP #### [facility] [address] [place] [address] Economics Instructor: Federico Cisneros MD BUN/CRE Ratio 10 Normal 9-20 [facility] Comment on above: Performed By: #### B MP, CDP #### [facility] [address] [place] [address] Economics Instructor: Federico Cisneros MD Calcium [Mass/Vol] 9.3 mg/dL Normal 8.6-10.4 [facility] Comment on above: Performed By: #### B MP, CDP #### [facility] [address] [place] [address] Economics Instructor: Federico Cisneros MD Chloride [Moles/Vol] 100 mmol/L Normal 98-107 [facility] Comment on above: Performed By: #### B MP, CDP #### [facility] [address] [place] [address] Economics Instructor: Federico Cisneros MD CO2 [Moles/Vol] 26 mmol/L Normal 20-31 [facility] Comment on above: Performed By: #### B MP, CDP #### [facility] [address] [place] [address] Economics Instructor: Federico Cisneros MD Creatinine [Mass/Vol] 0.8 mg/dL Normal 0.7-1.2 [facility] Comment on above: Performed By: #### B YAN, CDP #### [facility] [address] [place] [address] Economics Instructor: Federico Cisneros MD GFR/1.73 sq M.predicted among non-blacks MDRD (S/P/Bld) [Vol rate/Area] mL/min/{1.73_m2} Normal >60 [facility] Comment on above: Result Comment: These results are not intended for use in patients <18 years of age. eGFR results are calculated without a race factor using the 2020 CKD-EPI equation. Careful clinical correlation is recommended, particularly when comparing to results calculated using previous equations. The CKD-EPI equation is less accurate in patients with extremes of muscle mass, extra-renal metabolism of creatine, excessive creatine ingestion, or following therapy that affects renal tubular secretion. Performed By: #### B YAN, CDP #### [facility] [address] [place] [address] Economics Instructor: Federico Cisneros MD Glucose [Mass/Vol] 252 mg/dL High 70-99 [facility] Comment on above: Performed By: #### B YAN, CDP #### [facility] [address] [facility] [place] [address] Economics Instructor: Federico Cisneros MD Potassium [Moles/Vol] 4.0 mmol/L Normal 3.7-5.3 [facility] Comment on above: Performed By: #### B YAN, CDP #### [facility] [address] [facility] [place] [address] Economics Instructor: Federico Cisneros MD Sodium [Moles/Vol] 137 mmol/L Normal 135-144 [facility] Comment on above: Performed By: #### B YAN, CDP #### [facility] [address] [place] [address] Economics Instructor: Federico Cisneros MD Urea nitrogen [Mass/Vol] 8 mg/dL Normal 6-20 [facility] Comment on above: Performed By: #### B YAN, CDP #### [facility] [address] [place] [address] Economics Instructor: Federico Cisneros MD CBC with Diffon 06-11-2023 Abs. Basophil 0.06 k/uL Normal 0.00-0.20 [facility] Comment on above: Performed By: #### B YAN, CDP #### [facility] [address] [place] [address] Economics Instructor: Federico Cisneros MD Abs.Imm.Granulocyte 0.03 k/uL Normal 0.00-0.30 [facility] Comment on above: Performed By: #### B YAN, CDP #### [facility] [address] [place] [address] Economics Instructor: Federico Cisneros MD Abs.Neutrophil (Seg) 4.94 k/uL Normal 1.50-8.10 [facility] Comment on above: Performed By: #### B YAN, CDP #### [facility] [address] [place] [address] Economics Instructor: Federico Cisneros MD Basophils/100 WBC (Bld) 1 % Normal 0-2 [facility] Comment on above: Performed By: #### B YAN, CDP #### [facility] [address] [place] [address] Economics Instructor: Federico Cisneros MD Eosinophils (Bld) [#/Vol] 0.14 10*3/uL Normal 0.00-0.44 [facility] Comment on above: Performed By: #### B YAN, CDP #### [facility] [address] [place] [address] Economics Instructor: Federico Cisneros MD Eosinophils/100 WBC (Bld) 2 % Normal 1-4 [facility] Comment on above: Performed By: #### B YAN, CDP #### [facility] [address] [place] [address] Economics Instructor: Federico Cisneros MD Erythrocyte distribution width (RBC) [Ratio] 12.4 % Normal 11.8-14.4 [facility] Comment on above: Performed By: #### B YAN, CDP #### [facility] [facility] [place] [address] Economics Instructor: Federico Cisneros MD Hematocrit (Bld) [Volume fraction] 47.3 % Normal 40.7-50.3 [facility] Comment on above: Performed By: #### B YAN, CDP #### [facility] [address] [place] [address]. [place] [address] Economics Instructor: Federico Cisneros MD Hemoglobin (Bld) [Mass/Vol] 16.0 g/dL Normal 13.0-17.0 [facility] Comment on above: Performed By: #### B YAN, CDP #### [facility] [address] [place] [address]. [place] [address] Economics Instructor: Federico Cisneros MD Immature granulocytes/100 WBC (Bld) 0 % Normal 0 [facility] Comment on above: Performed By: #### B YAN, CDP #### [facility] [address] [place] [address]. [place] [address] Economics Instructor: Federico Cisneros MD Lymphocytes (Bld) [#/Vol] 2.16 10*3/uL Normal 1.10-3.70 [facility] Comment on above: Performed By: #### B YAN, CDP #### [facility] [address] [place] [address] Economics Instructor: Federico Cisneros MD Lymphocytes/100 WBC (Bld) 28 % Normal 24-43 [facility] Comment on above: Performed By: #### B MP, CDP #### [facility] [facility] [place] [address] Economics Instructor: Federico Cisneros MD MCH (RBC) [Entitic mass] 29.0 pg Normal 25.2-33.5 [facility] Comment on above: Performed By: #### B YAN, CDP #### [facility] [address] [place] [address]. [place] [address] Economics Instructor: Federico Cisneros MD MCHC (RBC) [Mass/Vol] 33.8 g/dL Normal 28.4-34.8 [facility] Comment on above: Performed By: #### B YAN, CDP #### [facility] [address] [place] [address]. [place] [address] Economics Instructor: Federico Cisneros MD MCV (RBC) [Entitic vol] 85.7 fL Normal 82.6-102.9 [facility] Comment on above: Performed By: #### B YAN, CDP #### [facility] [address] [place] [address]. [place] [address] Economics Instructor: Federico Cisneros MD Monocytes (Bld) [#/Vol] 0.49 10*3/uL Normal 0.10-1.20 [facility] Comment on above: Performed By: #### B YAN, CDP #### [facility] [address] [place] [address]. [place] [address] Economics Instructor: Federico Cisneros MD Monocytes/100 WBC (Bld) 6 % Normal 3-12 [facility] Comment on above: Performed By: #### B MP, CDP #### [facility] [address] [place] [address] Economics Instructor: Federico Cisneros MD Neutrophil (Seg) 63 % Normal 36-65 [facility] Comment on above: Performed By: #### B MP, CDP #### [facility] [address] [place] [address] Economics Instructor: Federico Cisneros MD NRBC Automated 0.0 per 100 WBC Normal 0.0 [facility] Comment on above: Performed By: #### B MP, CDP #### [facility] [place] [address] Economics Instructor: Federico Cisneros MD Platelet mean volume (Bld) [Entitic vol] 9.9 fL Normal 8.1-13.5 [facility] Comment on above: Performed By: #### B MP, CDP #### [facility] [place] [address] Economics Instructor: Federico Cisneros MD Platelets (Bld) [#/Vol] 357 10*3/uL Normal 138-453 [facility] Comment on above: Performed By: #### B MP, CDP #### [facility] [place] [address] Economics Instructor: Federico Cisneros MD RBC (Bld) [#/Vol] 5.52 10*6/uL Normal 4.21-5.77 [facility] Comment on above: Performed By: #### B MP, CDP #### [facility] [place] [address] Economics Instructor: Federico Cisneros MD WBC (Bld) [#/Vol] 7.8 10*3/uL Normal 3.5-11.3 [facility] Comment on above: Performed By: #### B , CDP #### [facility] [address] [place], [place] [id number] Economics Instructor: Federico Cisneros MD CT CERVICAL SPINE WO CONTRAS Ton 06-11-2023 CT CERVICAL SPINE WO CONTRAST EXAMINATION: CT OF THE THORACIC SPINE WITHOUT CONTRAST; CT OF THE HEAD WITHOUT CONTRAST; CT OF THE LUMBAR SPINE WITHOUT CONTRAST; CT OF THE CERVICAL SPINE WITHOUT CONTRAST; CT OF THE CHEST, ABDOMEN, AND PELVIS WITH CONTRAST 06/11/2023 2:51 pm; 06/11/2023 2:50 pm; 06/11/2023 2:49 pm TECHNIQUE: CT of the thoracic spine was performed without the administration of intravenous contrast. Multiplanar reformatted images are provided for review. Automated exposure control, iterative reconstruction, and/or weight based adjustment of the mA/kV was utilized to reduce the radiation dose to as low as reasonably achievable.; CT of the head was performed without the administration of intravenous contrast. Automated exposure control, iterative reconstruction, and/or weight based adjustment of the mA/kV was utilized to reduce the radiation dose to as low as reasonably achievable.; CT of the lumbar spine was performed without the administration of intravenous contrast. Multiplanar reformatted images are provided for review. Adjustment of mA and/or kV according to patient size was utilized. Automated exposure control, iterative reconstruction, and/or weight based adjustment of the mA/kV was utilized to reduce the radiation dose to as low as reasonably achievable.; CT of the cervical spine was performed without the administration of intravenous contrast. Multiplanar reformatted images are provided for review. Automated exposure control, iterative reconstruction, and/or weight based adjustment of the mA/kV was utilized to reduce the radiation dose to as low as reasonably achievable.; CT of the chest, abdomen and pelvis was performed with the administration of intravenous contrast. Multiplanar reformatted images are provided for review. Automated exposure control, iterative reconstruction, and/or weight based adjustment of the mA/kV was utilized to reduce the radiation dose to as low as reasonably achievable. COMPARISON: None HISTORY: ORDERING SYSTEM PROVIDED HISTORY: pain, fall 8ft off roof TECHNOLOGIST PROVIDED HISTORY: pain, fall 8ft off roof Reason for Exam: fall; ORDERING SYSTEM PROVIDED HISTORY: fall 8ft off roof TECHNOLOGIST PROVIDED HISTORY: fall 8ft off roof Decision Support Exception - unselect if not a suspected or confirmed emergency medical condition->Emergency Medical Condition ([place]) Reason for Exam: fall; ORDERING SYSTEM PROVIDED HISTORY: pain, fall 8ft off roof TECHNOLOGIST PROVIDED HISTORY: pain, fall 8ft off roof Decision Support Exception - unselect if not a suspected or confirmed emergency medical condition->Emergency Medical Condition (MA); ORDERING SYSTEM PROVIDED HISTORY: pain, fall 8ft off roof TECHNOLOGIST PROVIDED HISTORY: pain, fall 8ft off roof Decision Support Exception - unselect if not a suspected or confirmed emergency medical condition->Emergency Medical Condition (MA) Reason for Exam: fall; ORDERING SYSTEM PROVIDED HISTORY: trauma TECHNOLOGIST PROVIDED HISTORY: trauma Decision Support Exception - unselect if not a suspected or confirmed emergency medical condition->Emergency Medical Condition (MA) Reason for Exam: fall FINDINGS: Head CT: No evidence of intra or extra-axial hemorrhage. No evidence of masses or mass effects or shifts. Ventricular system is normal and symmetrical. Skull, paranasal sinuses and orbits appear normal. CT Cervical Spine: The lateral alignment appears normal. C1, C2 and odontoid appear normal. Spinous processes and posterior elements appear intact. No acute compression injury. No evidence of significant degenerative changes. No acute paraspinal abnormality. CT Thoracic Spine: BONES/ALIGNMENT: There is normal alignment of the spine. The vertebral body heights are maintained. No osseous destructive lesion is seen. Mild scoliotic deformity. DEGENERATIVE CHANGES: No gross spinal canal stenosis or bony neural foraminal narrowing of the thoracic spine. SOFT TISSUES: No paraspinal mass is seen. CT Lumbar Spine: Normal alignment of lumbar spine. No acute compression injury. Transverse processes appear intact. The sacrum appears intact. No acute fractures. No evidence of significant degenerative disc disease. CT Chest, Abdomen and Pelvis: Chest: Mediastinum: Thoracic aorta, pulmonary arteries, heart and pericardium appear unremarkable. No evidence of pericardial disease. Prominent right hilar nodes measure up to 1.2 cm. No evidence of mediastinal lymphadenopathy. Lungs/pleura: No active lung parenchyma or pleural disease. No evidence of pleural effusion or pneumothorax. No evidence of pulmonary contusion. Soft Tissues/Bones: Bilateral shoulders and scapulae as well as visualized clavicles appear intact. Some old right anterior rib fractures but no evidence of new or acute rib fractures. Abdomen/Pelvis: Organs: The liver demonstrates fatty infiltration but no focal disease. The gallbladder, pancreas and splee (more content not included)... Normal [facility] CT CHEST ABDOMEN PELVIS W CO NTRASTon 06-11-2023 CT CHEST ABDOMEN PELVIS W CONTRAST EXAMINATION: CT OF THE THORACIC SPINE WITHOUT CONTRAST; CT OF THE HEAD WITHOUT CONTRAST; CT OF THE LUMBAR SPINE WITHOUT CONTRAST; CT OF THE CERVICAL SPINE WITHOUT CONTRAST; CT OF THE CHEST, ABDOMEN, AND PELVIS WITH CONTRAST 06/11/2023 2:51 pm; 06/11/2023 2:50 pm; 06/11/2023 2:49 pm TECHNIQUE: CT of the thoracic spine was performed without the administration of intravenous contrast. Multiplanar reformatted images are provided for review. Automated exposure control, iterative reconstruction, and/or weight based adjustment of the mA/kV was utilized to reduce the radiation dose to as low as reasonably achievable.; CT of the head was performed without the administration of intravenous contrast. Automated exposure control, iterative reconstruction, and/or weight based adjustment of the mA/kV was utilized to reduce the radiation dose to as low as reasonably achievable.; CT of the lumbar spine was performed without the administration of intravenous contrast. Multiplanar reformatted images are provided for review. Adjustment of mA and/or kV according to patient size was utilized. Automated exposure control, iterative reconstruction, and/or weight based adjustment of the mA/kV was utilized to reduce the radiation dose to as low as reasonably achievable.; CT of the cervical spine was performed without the administration of intravenous contrast. Multiplanar reformatted images are provided for review. Automated exposure control, iterative reconstruction, and/or weight based adjustment of the mA/kV was utilized to reduce the radiation dose to as low as reasonably achievable.; CT of the chest, abdomen and pelvis was performed with the administration of intravenous contrast. Multiplanar reformatted images are provided for review. Automated exposure control, iterative reconstruction, and/or weight based adjustment of the mA/kV was utilized to reduce the radiation dose to as low as reasonably achievable. COMPARISON: None HISTORY: ORDERING SYSTEM PROVIDED HISTORY: pain, fall 8ft off roof TECHNOLOGIST PROVIDED HISTORY: pain, fall 8ft off roof Reason for Exam: fall; ORDERING SYSTEM PROVIDED HISTORY: fall 8ft off roof TECHNOLOGIST PROVIDED HISTORY: fall 8ft off roof Decision Support Exception - unselect if not a suspected or confirmed emergency medical condition->Emergency Medical Condition ([place]) Reason for Exam: fall; ORDERING SYSTEM PROVIDED HISTORY: pain, fall 8ft off roof TECHNOLOGIST PROVIDED HISTORY: pain, fall 8ft off roof Decision Support Exception - unselect if not a suspected or confirmed emergency medical condition->Emergency Medical Condition (MA); ORDERING SYSTEM PROVIDED HISTORY: pain, fall 8ft off roof TECHNOLOGIST PROVIDED HISTORY: pain, fall 8ft off roof Decision Support Exception - unselect if not a suspected or confirmed emergency medical condition->Emergency Medical Condition ([place]) Reason for Exam: fall; ORDERING SYSTEM PROVIDED HISTORY: trauma TECHNOLOGIST PROVIDED HISTORY: trauma Decision Support Exception - unselect if not a suspected or confirmed emergency medical condition->Emergency Medical Condition ([place]) Reason for Exam: fall FINDINGS: Head CT: No evidence of intra or extra-axial hemorrhage. No evidence of masses or mass effects or shifts. Ventricular system is normal and symmetrical. Skull, paranasal sinuses and orbits appear normal. CT Cervical Spine: The lateral alignment appears normal. C1, C2 and odontoid appear normal. Spinous processes and posterior elements appear intact. No acute compression injury. No evidence of significant degenerative changes. No acute paraspinal abnormality. CT Thoracic Spine: BONES/ALIGNMENT: There is normal alignment of the spine. The vertebral body heights are maintained. No osseous destructive lesion is seen. Mild scoliotic deformity. DEGENERATIVE CHANGES: No gross spinal canal stenosis or bony neural foraminal narrowing of the thoracic spine. SOFT TISSUES: No paraspinal mass is seen. CT Lumbar Spine: Normal alignment of lumbar spine. No acute compression injury. Transverse processes appear intact. The sacrum appears intact. No acute fractures. No evidence of significant degenerative disc disease. CT Chest, Abdomen and Pelvis: Chest: Mediastinum: Thoracic aorta, pulmonary arteries, heart and pericardium appear unremarkable. No evidence of pericardial disease. Prominent right hilar nodes measure up to 1.2 cm. No evidence of mediastinal lymphadenopathy. Lungs/pleura: No active lung parenchyma or pleural disease. No evidence of pleural effusion or pneumothorax. No evidence of pulmonary contusion. Soft Tissues/Bones: Bilateral shoulders and scapulae as well as visualized clavicles appear intact. Some old right anterior rib fractures but no evidence of new or acute rib fractures. Abdomen/Pelvis: Organs: The liver demonstrates fatty infiltration but no focal disease. The gallbladder, pancreas and splee (more content not included)... Normal [facility] CT HEAD WO CONTRASTon 2022 CT HEAD WO CONTRAST EXAMINATION: CT OF THE THORACIC SPINE WITHOUT CONTRAST; CT OF THE HEAD WITHOUT CONTRAST; CT OF THE LUMBAR SPINE WITHOUT CONTRAST; CT OF THE CERVICAL SPINE WITHOUT CONTRAST; CT OF THE CHEST, ABDOMEN, AND PELVIS WITH CONTRAST 06/11/2023 2:51 pm; 06/11/2023 2:50 pm; 06/11/2023 2:49 pm TECHNIQUE: CT of the thoracic spine was performed without the administration of intravenous contrast. Multiplanar reformatted images are provided for review. Automated exposure control, iterative reconstruction, and/or weight based adjustment of the mA/kV was utilized to reduce the radiation dose to as low as reasonably achievable.; CT of the head was performed without the administration of intravenous contrast. Automated exposure control, iterative reconstruction, and/or weight based adjustment of the mA/kV was utilized to reduce the radiation dose to as low as reasonably achievable.; CT of the lumbar spine was performed without the administration of intravenous contrast. Multiplanar reformatted images are provided for review. Adjustment of mA and/or kV according to patient size was utilized. Automated exposure control, iterative reconstruction, and/or weight based adjustment of the mA/kV was utilized to reduce the radiation dose to as low as reasonably achievable.; CT of the cervical spine was performed without the administration of intravenous contrast. Multiplanar reformatted images are provided for review. Automated exposure control, iterative reconstruction, and/or weight based adjustment of the mA/kV was utilized to reduce the radiation dose to as low as reasonably achievable.; CT of the chest, abdomen and pelvis was performed with the administration of intravenous contrast. Multiplanar reformatted images are provided for review. Automated exposure control, iterative reconstruction, and/or weight based adjustment of the mA/kV was utilized to reduce the radiation dose to as low as reasonably achievable. COMPARISON: None HISTORY: ORDERING SYSTEM PROVIDED HISTORY: pain, fall 8ft off roof TECHNOLOGIST PROVIDED HISTORY: pain, fall 8ft off roof Reason for Exam: fall; ORDERING SYSTEM PROVIDED HISTORY: fall 8ft off roof TECHNOLOGIST PROVIDED HISTORY: fall 8ft off roof Decision Support Exception - unselect if not a suspected or confirmed emergency medical condition->Emergency Medical Condition ([place]) Reason for Exam: fall; ORDERING SYSTEM PROVIDED HISTORY: pain, fall 8ft off roof TECHNOLOGIST PROVIDED HISTORY: pain, fall 8ft off roof Decision Support Exception - unselect if not a suspected or confirmed emergency medical condition->Emergency Medical Condition (MA); ORDERING SYSTEM PROVIDED HISTORY: pain, fall 8ft off roof TECHNOLOGIST PROVIDED HISTORY: pain, fall 8ft off roof Decision Support Exception - unselect if not a suspected or confirmed emergency medical condition->Emergency Medical Condition ([place]) Reason for Exam: fall; ORDERING SYSTEM PROVIDED HISTORY: trauma TECHNOLOGIST PROVIDED HISTORY: trauma Decision Support Exception - unselect if not a suspected or confirmed emergency medical condition->Emergency Medical Condition ([place]) Reason for Exam: fall FINDINGS: Head CT: No evidence of intra or extra-axial hemorrhage. No evidence of masses or mass effects or shifts. Ventricular system is normal and symmetrical. Skull, paranasal sinuses and orbits appear normal. CT Cervical Spine: The lateral alignment appears normal. C1, C2 and odontoid appear normal. Spinous processes and posterior elements appear intact. No acute compression injury. No evidence of significant degenerative changes. No acute paraspinal abnormality. CT Thoracic Spine: BONES/ALIGNMENT: There is normal alignment of the spine. The vertebral body heights are maintained. No osseous destructive lesion is seen. Mild scoliotic deformity. DEGENERATIVE CHANGES: No gross spinal canal stenosis or bony neural foraminal narrowing of the thoracic spine. SOFT TISSUES: No paraspinal mass is seen. CT Lumbar Spine: Normal alignment of lumbar spine. No acute compression injury. Transverse processes appear intact. The sacrum appears intact. No acute fractures. No evidence of significant degenerative disc disease. CT Chest, Abdomen and Pelvis: Chest: Mediastinum: Thoracic aorta, pulmonary arteries, heart and pericardium appear unremarkable. No evidence of pericardial disease. Prominent right hilar nodes measure up to 1.2 cm. No evidence of mediastinal lymphadenopathy. Lungs/pleura: No active lung parenchyma or pleural disease. No evidence of pleural effusion or pneumothorax. No evidence of pulmonary contusion. Soft Tissues/Bones: Bilateral shoulders and scapulae as well as visualized clavicles appear intact. Some old right anterior rib fractures but no evidence of new or acute rib fractures. Abdomen/Pelvis: Organs: The liver demonstrates fatty infiltration but no focal disease. The gallbladder, pancreas and splee (more content not included)... Normal [facility] CT LUMBAR SPINE WO CONTRASTo n 06-11-2023 CT LUMBAR SPINE WO CONTRAST EXAMINATION: CT OF THE THORACIC SPINE WITHOUT CONTRAST; CT OF THE HEAD WITHOUT CONTRAST; CT OF THE LUMBAR SPINE WITHOUT CONTRAST; CT OF THE CERVICAL SPINE WITHOUT CONTRAST; CT OF THE CHEST, ABDOMEN, AND PELVIS WITH CONTRAST 06/11/2023 2:51 pm; 06/11/2023 2:50 pm; 06/11/2023 2:49 pm TECHNIQUE: CT of the thoracic spine was performed without the administration of intravenous contrast. Multiplanar reformatted images are provided for review. Automated exposure control, iterative reconstruction, and/or weight based adjustment of the mA/kV was utilized to reduce the radiation dose to as low as reasonably achievable.; CT of the head was performed without the administration of intravenous contrast. Automated exposure control, iterative reconstruction, and/or weight based adjustment of the mA/kV was utilized to reduce the radiation dose to as low as reasonably achievable.; CT of the lumbar spine was performed without the administration of intravenous contrast. Multiplanar reformatted images are provided for review. Adjustment of mA and/or kV according to patient size was utilized. Automated exposure control, iterative reconstruction, and/or weight based adjustment of the mA/kV was utilized to reduce the radiation dose to as low as reasonably achievable.; CT of the cervical spine was performed without the administration of intravenous contrast. Multiplanar reformatted images are provided for review. Automated exposure control, iterative reconstruction, and/or weight based adjustment of the mA/kV was utilized to reduce the radiation dose to as low as reasonably achievable.; CT of the chest, abdomen and pelvis was performed with the administration of intravenous contrast. Multiplanar reformatted images are provided for review. Automated exposure control, iterative reconstruction, and/or weight based adjustment of the mA/kV was utilized to reduce the radiation dose to as low as reasonably achievable. COMPARISON: None HISTORY: ORDERING SYSTEM PROVIDED HISTORY: pain, fall 8ft off roof TECHNOLOGIST PROVIDED HISTORY: pain, fall 8ft off roof Reason for Exam: fall; ORDERING SYSTEM PROVIDED HISTORY: fall 8ft off roof TECHNOLOGIST PROVIDED HISTORY: fall 8ft off roof Decision Support Exception - unselect if not a suspected or confirmed emergency medical condition->Emergency Medical Condition ([place]) Reason for Exam: fall; ORDERING SYSTEM PROVIDED HISTORY: pain, fall 8ft off roof TECHNOLOGIST PROVIDED HISTORY: pain, fall 8ft off roof Decision Support Exception - unselect if not a suspected or confirmed emergency medical condition->Emergency Medical Condition (MA); ORDERING SYSTEM PROVIDED HISTORY: pain, fall 8ft off roof TECHNOLOGIST PROVIDED HISTORY: pain, fall 8ft off roof Decision Support Exception - unselect if not a suspected or confirmed emergency medical condition->Emergency Medical Condition ([place]) Reason for Exam: fall; ORDERING SYSTEM PROVIDED HISTORY: trauma TECHNOLOGIST PROVIDED HISTORY: trauma Decision Support Exception - unselect if not a suspected or confirmed emergency medical condition->Emergency Medical Condition ([place]) Reason for Exam: fall FINDINGS: Head CT: No evidence of intra or extra-axial hemorrhage. No evidence of masses or mass effects or shifts. Ventricular system is normal and symmetrical. Skull, paranasal sinuses and orbits appear normal. CT Cervical Spine: The lateral alignment appears normal. C1, C2 and odontoid appear normal. Spinous processes and posterior elements appear intact. No acute compression injury. No evidence of significant degenerative changes. No acute paraspinal abnormality. CT Thoracic Spine: BONES/ALIGNMENT: There is normal alignment of the spine. The vertebral body heights are maintained. No osseous destructive lesion is seen. Mild scoliotic deformity. DEGENERATIVE CHANGES: No gross spinal canal stenosis or bony neural foraminal narrowing of the thoracic spine. SOFT TISSUES: No paraspinal mass is seen. CT Lumbar Spine: Normal alignment of lumbar spine. No acute compression injury. Transverse processes appear intact. The sacrum appears intact. No acute fractures. No evidence of significant degenerative disc disease. CT Chest, Abdomen and Pelvis: Chest: Mediastinum: Thoracic aorta, pulmonary arteries, heart and pericardium appear unremarkable. No evidence of pericardial disease. Prominent right hilar nodes measure up to 1.2 cm. No evidence of mediastinal lymphadenopathy. Lungs/pleura: No active lung parenchyma or pleural disease. No evidence of pleural effusion or pneumothorax. No evidence of pulmonary contusion. Soft Tissues/Bones: Bilateral shoulders and scapulae as well as visualized clavicles appear intact. Some old right anterior rib fractures but no evidence of new or acute rib fractures. Abdomen/Pelvis: Organs: The liver demonstrates fatty infiltration but no focal disease. The gallbladder, pancreas and splee (more content not included)... Normal [facility] CT THORACIC SPINE WO CONTRAS Ton 06-11-2023 CT THORACIC SPINE WO CONTRAST EXAMINATION: CT OF THE THORACIC SPINE WITHOUT CONTRAST; CT OF THE HEAD WITHOUT CONTRAST; CT OF THE LUMBAR SPINE WITHOUT CONTRAST; CT OF THE CERVICAL SPINE WITHOUT CONTRAST; CT OF THE CHEST, ABDOMEN, AND PELVIS WITH CONTRAST 06/11/2023 2:51 pm; 06/11/2023 2:50 pm; 06/11/2023 2:49 pm TECHNIQUE: CT of the thoracic spine was performed without the administration of intravenous contrast. Multiplanar reformatted images are provided for review. Automated exposure control, iterative reconstruction, and/or weight based adjustment of the mA/kV was utilized to reduce the radiation dose to as low as reasonably achievable.; CT of the head was performed without the administration of intravenous contrast. Automated exposure control, iterative reconstruction, and/or weight based adjustment of the mA/kV was utilized to reduce the radiation dose to as low as reasonably achievable.; CT of the lumbar spine was performed without the administration of intravenous contrast. Multiplanar reformatted images are provided for review. Adjustment of mA and/or kV according to patient size was utilized. Automated exposure control, iterative reconstruction, and/or weight based adjustment of the mA/kV was utilized to reduce the radiation dose to as low as reasonably achievable.; CT of the cervical spine was performed without the administration of intravenous contrast. Multiplanar reformatted images are provided for review. Automated exposure control, iterative reconstruction, and/or weight based adjustment of the mA/kV was utilized to reduce the radiation dose to as low as reasonably achievable.; CT of the chest, abdomen and pelvis was performed with the administration of intravenous contrast. Multiplanar reformatted images are provided for review. Automated exposure control, iterative reconstruction, and/or weight based adjustment of the mA/kV was utilized to reduce the radiation dose to as low as reasonably achievable. COMPARISON: None HISTORY: ORDERING SYSTEM PROVIDED HISTORY: pain, fall 8ft off roof TECHNOLOGIST PROVIDED HISTORY: pain, fall 8ft off roof Reason for Exam: fall; ORDERING SYSTEM PROVIDED HISTORY: fall 8ft off roof TECHNOLOGIST PROVIDED HISTORY: fall 8ft off roof Decision Support Exception - unselect if not a suspected or confirmed emergency medical condition->Emergency Medical Condition ([place]) Reason for Exam: fall; ORDERING SYSTEM PROVIDED HISTORY: pain, fall 8ft off roof TECHNOLOGIST PROVIDED HISTORY: pain, fall 8ft off roof Decision Support Exception - unselect if not a suspected or confirmed emergency medical condition->Emergency Medical Condition (MA); ORDERING SYSTEM PROVIDED HISTORY: pain, fall 8ft off roof TECHNOLOGIST PROVIDED HISTORY: pain, fall 8ft off roof Decision Support Exception - unselect if not a suspected or confirmed emergency medical condition->Emergency Medical Condition ([place]) Reason for Exam: fall; ORDERING SYSTEM PROVIDED HISTORY: trauma TECHNOLOGIST PROVIDED HISTORY: trauma Decision Support Exception - unselect if not a suspected or confirmed emergency medical condition->Emergency Medical Condition ([place]) Reason for Exam: fall FINDINGS: Head CT: No evidence of intra or extra-axial hemorrhage. No evidence of masses or mass effects or shifts. Ventricular system is normal and symmetrical. Skull, paranasal sinuses and orbits appear normal. CT Cervical Spine: The lateral alignment appears normal. C1, C2 and odontoid appear normal. Spinous processes and posterior elements appear intact. No acute compression injury. No evidence of significant degenerative changes. No acute paraspinal abnormality. CT Thoracic Spine: BONES/ALIGNMENT: There is normal alignment of the spine. The vertebral body heights are maintained. No osseous destructive lesion is seen. Mild scoliotic deformity. DEGENERATIVE CHANGES: No gross spinal canal stenosis or bony neural foraminal narrowing of the thoracic spine. SOFT TISSUES: No paraspinal mass is seen. CT Lumbar Spine: Normal alignment of lumbar spine. No acute compression injury. Transverse processes appear intact. The sacrum appears intact. No acute fractures. No evidence of significant degenerative disc disease. CT Chest, Abdomen and Pelvis: Chest: Mediastinum: Thoracic aorta, pulmonary arteries, heart and pericardium appear unremarkable. No evidence of pericardial disease. Prominent right hilar nodes measure up to 1.2 cm. No evidence of mediastinal lymphadenopathy. Lungs/pleura: No active lung parenchyma or pleural disease. No evidence of pleural effusion or pneumothorax. No evidence of pulmonary contusion. Soft Tissues/Bones: Bilateral shoulders and scapulae as well as visualized clavicles appear intact. Some old right anterior rib fractures but no evidence of new or acute rib fractures. Abdomen/Pelvis: Organs: The liver demonstrates fatty infiltration but no focal disease. The gallbladder, pancreas and splee (more content not included)... Normal [facility] Follicle Stim. Hormon 2022 Follicle Stim. Horm 4.0 mIU/mL Normal 1.5-12.4 [facility] Comment on above: Performed By: #### B VTEST, PROL, LH, FSH #### [facility] [employer] [address] [place] [address] Economics Instructor: Frankie Cha MD Luteinizing Hormoneon 2022 Luteinizing Hormone 5.5 mIU/mL Normal 1.7-8.6 [facility] Comment on above: Performed By: #### B VTEST, PROL, LH, FSH #### [facility] [employer] [address] [place] [address] [id number] Economics Instructor: Frankie Cha MD Prolactinon 04-03-2023 Prolactin 8.84 ng/mL Normal 4.04-15.20 [facility] Comment on above: Result Comment: The presence of macroprolactin may cause interference in female patients with various endocrinological diseases or during . Performed By: #### B VTEST, PROL, LH, FSH #### [address] [id number] Economics Instructor: Frankie Cha MD Testosterone,Bioavailon 03-11 Sex Horm Bind Glob 16 nmol/L Normal 11-80 [facility] Comment on above: Performed By: #### B VTEST, PROL, LH, FSH #### [facility] [employer] [address] [place] [address] [id number] Economics Instructor: Frankie Cha MD Test,Bioavail 180.7 ng/dL Normal 130-680 [facility] Comment on above: Result Comment: The concentration of bioavailable testosterone is derived from a mathematical expression based on the constant for the binding of testosterone to albumin and/or sex hormone binding globulin. Performed By: #### B VTEST, PROL, LH, FSH #### [facility] [employer] [address] [place] [id number] Economics Instructor: Frankie Cha MD Testosterone [Mass/Vol] 278 ng/dL Normal 220-1000 [facility] Comment on above: Performed By: #### B VTEST, PROL, LH, FSH #### [facility] [employer] [address] [place] [address] [id number] Economics Instructor: Frankie Cha MD Testosterone,Free 77.1 pg/mL Normal 47-244 [facility] Comment on above: Result Comment: The concentration of free testosterone is derived from a mathematical expression based on the constant for the binding of testosterone to albumin and/or sex hormone binding globulin. Performed By: #### B VTEST, PROL, LH, FSH #### [facility] [employer] [address] [place] [address] Economics Instructor: Frankie Cha MD Testosteroneon 01-07-2023 Testosterone [Mass/Vol] 221 ng/dL 220 - 1000 ng/dL [facility] CBCon 11-28-2022 Hematocrit (Bld) [Volume fraction] 53.3 % High 40.7 - 50.3 % [facility] Hemoglobin (Bld) [Mass/Vol] 17.4 g/dL High 13.0 - 17.0 g/dL [facility] Interpretation and review of laboratory results Abnormal [facility] MCH (RBC) [Entitic mass] 28.3 pg 25.2 - 33.5 pg [facility] MCHC (RBC) [Mass/Vol] 32.6 g/dL 28.4 - 34.8 g/dL [facility] MCV (RBC) [Entitic vol] 86.8 fL 82.6 - 102.9 fL [facility] NRBC Automated 0.0 0.0 per 100 WBC [facility] Platelet distribution width (Bld) [Ratio] 12.5 % 11.8 - 14.4 % [facility] Platelet mean volume (Bld) [Entitic vol] 9.8 fL 8.1 - 13.5 fL [facility] Platelets (Bld) [#/Vol] 370 10*3/uL [facility] RBC (Bld) [#/Vol] 6.14 10*6/uL High 4.21 - 5.7 7 m/uL [facility] WBC (Bld) [#/Vol] 8.5 10*3/uL [facility] HIV Screenon 11-28-2022 HIV 1+2 Ab+HIV1 p24 Ag IA Ql Non-Reactive NONREACTIVE [facility] Comment on above: No laboratory eviden ce of HIV infection. If acute HIV infection is suspected, consider testing for HIV-1 RNA. [facility] Sedimentation Rateon 023 ESR (Bld) [Velocity] 10 mm/h [facility] POCT glycosylated hemoglobin (Hb A1C)on 11-20-2022 HbA1c (Bld) [Mass fraction] 8.0 % [facility] Work Phone: [facility] Work Phone: CBCon 09-26-2022 Hematocrit (Bld) [Volume fraction] 55.1 % High 40.7 - 50.3 % [facility] Hemoglobin (Bld) [Mass/Vol] 18.0 g/dL High 13.0 - 17.0 g/dL [facility] Interpretation and review of laboratory results Abnormal [facility] MCH (RBC) [Entitic mass] 28.3 pg 25.2 - 33.5 pg [facility] MCHC (RBC) [Mass/Vol] 32.7 g/dL 28.4 - 34.8 g/dL [facility] MCV (RBC) [Entitic vol] 86.6 fL 82.6 - 102.9 fL [facility] NRBC Automated 0.0 0.0 per 100 WBC [facility] Platelet distribution width (Bld) [Ratio] 12.7 % 11.8 - 14.4 % [facility] Platelet mean volume (Bld) [Entitic vol] 9.6 fL 8.1 - 13.5 fL [facility] Platelets (Bld) [#/Vol] 339 10*3/uL [facility] RBC (Bld) [#/Vol] 6.36 10*6/uL High 4.21 - 5.7 7 m/uL [facility] WBC (Bld) [#/Vol] 8.3 10*3/uL [facility] Comprehensive Metabolic Pane karyn 09-26-2022 Albumin [Mass/Vol] 4.7 g/dL 3.5 - 5.2 g/dL [facility] Albumin/Globulin [Mass ratio] 1.9 {ratio} 1.0 - 2.5 [facility] ALP [Catalytic activity/Vol] 81 U/L 40 - 129 U/L [facility] ALT [Catalytic activity/Vol] 89 U/L High 5 - 41 U/L [facility] Anion gap [Moles/Vol] 11 mmol/L 9 - 17 mmol/L [facility] AST [Catalytic activity/Vol] 35 U/L NINF - 40 U/L [facility] Bilirubin [Mass/Vol] 0.3 mg/dL 0.3 - 1 .2 mg/dL [facility] Calcium [Mass/Vol] 9.3 mg/dL 8.6 - 10. 4 mg/dL [facility] Chloride [Moles/Vol] 97 mmol/L Low 98 - 10 7 mmol/L [facility] CO2 [Moles/Vol] 29 mmol/L 20 - 31 mmol/L [facility] Creatinine [Mass/Vol] 0.85 mg/dL 0.70 - 1.20 mg/dL [facility] GFR/1.73 sq M.predicted MDRD (S/P/Bld) [Vol rate/Area] - PINF [facility] Comment on above: These results are not intended for use in patients <18 years of age. eGFR results are calculated without a race factor using the 2020 CKD-EPI equation. Careful clinical correlation is recommended, particularly when comparing to results calculated using previous equations. The CKD-EPI equation is less accurate in patients with extremes of muscle mass, extra-renal metabolism of creatine, excessive creatine ingestion, or following therapy that affects renal tubular secretion. Glucose [Mass/Vol] 280 mg/dL High 70 - 99 mg/dL [facility] Potassium [Moles/Vol] 5.2 mmol/L 3.7 - 5.3 mmol/L [facility] Protein [Mass/Vol] 7.2 g/dL 6.4 - 8.3 g/dL [facility] Sodium [Moles/Vol] 137 mmol/L 135 - 144 mmol/L [facility] Urea nitrogen [Mass/Vol] 15 mg/dL 6 - 20 mg/dL [facility] Lipid Panelon 09-26-2022 Cholesterol [Mass/Vol] 217 mg/dL High NINF - 200 mg/dL [employer] Comment on above: Cholesterol Guidelines: <200 Desirable 200-240 Borderline >240 Undesirable Cholesterol in HDL [Mass/Vol] 51 mg/dL 40 - PINF mg/dL [employer] Comment on above: HDL Guidelines: <40 Undesirable 40-59 Borderline >59 Desirable Cholesterol in LDL [Mass/Vol] 137 mg/dL High 0 - 130 mg/dL [employer] Comment on above: LDL Guidelines: <100 Desirable 100-129 Near to/above Desirable 130-159 Borderline >159 Undesirable Direct (measured) LDL and calculated LDL are not interchangeable tests. Cholesterol.total/Chol esterol in HDL [Mass ratio] 4.3 {ratio} NINF - 5 [employer] Triglyceride [Mass/Vol] 147 mg/dL NINF - 150 mg/dL [employer] Comment on above: Triglyceride Guidelines: <150 Desirable 150-199 Borderline 200-499 High >499 Very high Based on AHA Guidelines for fasting triglyceride, May 2012. No Panel Informationon 09-26 Interpretation and review of laboratory results Abnormal [facility] [employer] TSHon 09-26-2022 TSH Qn 2.76 m[IU]/L [facility] RIGHT (MIN 3 VIEWS)o n 06-22-2022 No acute osseous abnormality evident. Follow-up imaging recommended if pain persists or worsens following conservative management. [facility] EXAMINATION: THREE XRAY VIEWS OF THE RIGHT FOOT 06/22/2022 10:46 pm COMPARISON: None. HISTORY: ORDERING SYSTEM PROVIDED HISTORY: pain TECHNOLOGIST PROVIDED HISTORY: pain Reason for Exam: 2x4 lumber was dropped on foot earlier today. pain through toes, cannot bear weight FINDINGS: Osseous structures of the foot appear intact and are aligned normally. Joint spaces appear well maintained. Soft tissues are unremarkable in appearance. No retained radiopaque foreign body. [facility] Grover Swan MD - 06/22/2022 EXAMINATION: THREE XRAY VIEWS OF THE RIGHT FOOT 06/22/2022 10:46 pm COMPARISON: None. HISTORY: ORDERING SYSTEM PROVIDED HISTORY: pain TECHNOLOGIST PROVIDED HISTORY: pain Reason for Exam: 2x4 lumber was dropped on foot earlier today. pain through toes, cannot bear weight FINDINGS: Osseous structures of the foot appear intact and are aligned normally. Joint spaces appear well maintained. Soft tissues are unremarkable in appearance. No retained radiopaque foreign body. IMPRESSION: No acute osseous abnormality evident. Follow-up imaging recommended if pain persists or worsens following conservative management. [employer] Phone: Radiology Study observation (narrative) [employer] Phone: XR FOOT RIGHT (MIN 3 VIEWS)O rdered By: Grover Swan on 06-22-2022 [facility] [employer] Phone: BASIC METABOLIC PANELon 03-10 Calcium [Mass/Vol] 8.6 mg/dL Normal 8.6-10.3 [facility] Comment on above: Order Comment: This order is a replacement of the rejected order with accession number [id number]. Performed By: #### 0 0071 #### [facility] [address] [place] [address], [facility] Chloride [Moles/Vol] 102 mmol/L Normal 98-107 [facility] Comment on above: Order Comment: This order is a replacement of the rejected order with accession number [id number]. Performed By: #### 0 0071 #### [facility] [address] [facility] [address], [facility] CO2 [Moles/Vol] 26 mmol/L Normal 21-31 [facility] Comment on above: Order Comment: This order is a replacement of the rejected order with accession number [id number]. Performed By: #### 0 0071 #### [facility] [address] [place] [address], [facility] Creatinine [Mass/Vol] 1.45 mg/dL High 0.70-1.30 [facility] Comment on above: Order Comment: This order is a replacement of the rejected order with accession number [id number]. Performed By: #### 0 0071 #### [facility] [address] [place] [address], [facility] eGFR- non- 55 ml/min/1.73sq m Abnormal >60 [facility] Comment on above: Order Comment: This order is a replacement of the rejected order with accession number [id number]. Performed By: #### 0 0071 #### [facility] [address] [place] [id number], [facility] GFR/1.73 sq M.predicted among blacks MDRD (S/P/Bld) [Vol rate/Area] mL/min/{1.73_m2} Normal >60 [facility] Comment on above: Order Comment: This order is a replacement of the rejected order with accession number [id number]. Performed By: #### 0 0071 #### [facility] [address] [place] [address], [facility] Glucose [Mass/Vol] 158 mg/dL High 70-100 [facility] Comment on above: Order Comment: This order is a replacement of the rejected order with accession number [id number]. Performed By: #### 0 0071 #### [facility] [address] [place] [address], [facility] Potassium [Moles/Vol] 3.7 mmol/L Normal 3.5-5.1 [facility] Comment on above: Order Comment: This order is a replacement of the rejected order with accession number [id number]. Performed By: #### 0 0071 #### [facility] [address] [place] [address], [facility] Sodium [Moles/Vol] 136 mmol/L Normal 136-145 [facility] Comment on above: Order Comment: This order is a replacement of the rejected order with accession number [id number]. Performed By: #### 0 0071 #### [facility] [address] [place] [id number], [facility] Urea nitrogen [Mass/Vol] 25 mg/dL Normal 7-25 [facility] Comment on above: Order Comment: This order is a replacement of the rejected order with accession number [id number]. Performed By: #### 0 0071 #### [facility] [address] CBC W/DIFFon 03-28-2021 ABS IMM GRANS 0.1 10*3/uL Normal 0.0-0.2 [facility] Comment on above: Performed By: #### 5 3 #### [facility] [address] [place] [address], [facility] ABS NEUTROPHILS 9.3 10*3/uL High 1.6-7.6 [facility] Comment on above: Performed By: #### 5 3 #### [facility] [address] [place] [address], [facility] Basophils (Bld) [#/Vol] 0.1 10*3/uL Normal 0.0-0.2 [facility] Comment on above: Performed By: #### 5 3 #### [facility] [address] [place] [address], [facility] Basophils/100 WBC (Bld) 0.7 % Normal 0.0-1.0 [facility] Comment on above: Performed By: #### 5 3 #### [facility] [address] [place] [address], [facility] Eosinophils (Bld) [#/Vol] 0.2 10*3/uL Normal 0.0-0.5 [facility] Comment on above: Performed By: #### 5 3 #### [facility] [address] [place] [address], [facility] Eosinophils/100 WBC (Bld) 1.7 % Normal 0.0-6.0 [facility] Comment on above: Performed By: #### 5 3 #### [facility] [address] [facility] Erythrocyte distribution width (RBC) [Ratio] 12.9 % Normal 11.5-15.0 [facility] Comment on above: Performed By: #### 5 0103 #### [facility] [address] [facility] [place] [address], [facility] Hematocrit (Bld) [Volume fraction] 47.7 % Normal 39.0-50.0 [facility] Comment on above: Performed By: #### 0103 #### [facility] [address] [place] [address], [facility] Hemoglobin (Bld) [Mass/Vol] 16.5 g/dL Normal 13.0-17.0 [facility] Comment on above: Performed By: #### 0103 #### [facility] [address] [place] [address], [facility] IMMATURE GRANS 0.7 % Normal 0.0-1.0 [facility] Comment on above: Performed By: #### 0103 #### [facility] [address] [place] [address], [facility] Lymphocytes (Bld) [#/Vol] 2.9 10*3/uL Normal 1.2-4.0 [facility] Comment on above: Performed By: #### 5 0103 #### [facility] [address] [place] [address], [facility] Lymphocytes/100 WBC (Bld) 21.6 % Normal 20.0-45.0 [facility] Comment on above: Performed By: #### 5 0103 #### [facility] [address] [place] [address], [facility] MCH (RBC) [Entitic mass] 29.0 pg Normal 27.0-33.0 [facility] Comment on above: Performed By: #### 5 3 #### [facility] [address] MCHC (RBC) [Mass/Vol] 34.6 g/dL Normal 32.0-35.0 [facility] Comment on above: Performed By: #### 5 0103 #### [facility] [address] [facility] [place] [address], [facility] MCV (RBC) [Entitic vol] 84.0 fL Normal 82.0-98.0 [facility] Comment on above: Performed By: #### 5 0103 #### [facility] [address] [place] [address], [facility] Monocytes (Bld) [#/Vol] 0.9 10*3/uL Normal 0.1-1.0 [facility] Comment on above: Performed By: #### 5 0103 #### [facility] [address] [place] [address], [facility] MONOS 6.6 % Normal 5.0-12.0 [facility] Comment on above: Performed By: #### 5 0103 #### [facility] [address] [place] [address], [facility] Neutrophils/100 WBC (Bld) 68.7 % Normal 40.0-72.0 [facility] Comment on above: Performed By: #### 5 0103 #### [facility] [address] [place] [address], [facility] Nucleated RBC/100 WBC (Bld) [Ratio] 0 % Normal 0-0 [facility] Comment on above: Performed By: #### 5 0103 #### [facility] [address] [place] [address], [facility] PLAT CNT 316 10*3/uL Normal 150-400 [facility] Comment on above: Performed By: #### 5 0103 #### [facility] [address] [place] [address], [facility] RBC (Bld) [#/Vol] 5.68 10*6/uL Normal 4.20-5.70 [facility] Comment on above: Performed By: #### 5 0103 #### [address] WBC (Bld) [#/Vol] 13.58 10*3/uL High 4.00-10.60 [facility] Comment on above: Performed By: #### 5 0103 #### [address] PORTABLE CHEST 1 VIEWon 03-10 PORTABLE CHEST [address] [facility] Department of Radiology [address] [place] [id number] Patient Name: GROVER SEO : 1985 Sex: M Age: Race: White Pt. Location: [facility] Patient Status: E Ordered Date: 03/28/2021 3:45:00 PM Completed Date: 03/28/2021 04:16 PM Requesting Provider: DAMION LOZOYA Attending Provider: LEONIE LEDEZMA Report Copy To: Signs & Symptoms: Chest Pain History: Comments: evaluate for Cardiomegaly Exam: PORTABLE CHEST 1 VIEW PORTABLE CHEST 1 VIEW 03/28/2021 4:16 PM CLINICAL INDICATIONS: Chest Pain TECHNOLOGIST COMMENTS: chest pain QUESTION FOR THE RADIOLOGIST: evaluate for Cardiomegaly PROTOCOL: AP(PA) view was obtained. COMPARISON: None FINDINGS: Heart and mediastinum are within normal limits. No cardiomegaly. Lungs are inflated without consolidation, effusion or congestion. Bony structures are age compatible. IMPRESSION: No acute findings. Electronically signed: Mna Chavez. Transcribed by: [email or web address], User Resident: MAN CHAVEZ Electronically Signed by: MAN CHAVEZ @ 03/28/2021 04:25 PM I personally read this/these film(s) with this resident Normal [facility] Comment on above: Order Comment: evalu ate for Cardiomegaly CBC W/DIFFon 03-22-2021 ABS IMM GRANS 0.1 10*3/uL Normal 0.0-0.2 [facility] Comment on above: Performed By: #### 5 0103 #### [facility] [address] [place] [address], [facility] ABS NEUTROPHILS 6.2 10*3/uL Normal 1.6-7.6 [facility] Comment on above: Performed By: #### 5 0103 #### [facility] [address] [facility] [place] [address], [facility] Basophils (Bld) [#/Vol] 0.1 10*3/uL Normal 0.0-0.2 [facility] Comment on above: Performed By: #### 5 0103 #### [facility] [address] [place] [address], [facility] Basophils/100 WBC (Bld) 0.8 % Normal 0.0-1.0 [facility] Comment on above: Performed By: #### 5 0103 #### [facility] [address] [place] [address], [facility] Eosinophils (Bld) [#/Vol] 0.2 10*3/uL Normal 0.0-0.5 [facility] Comment on above: Performed By: #### 5 0103 #### [facility] [address] [place] [id number], [place] Eosinophils/100 WBC (Bld) 1.8 % Normal 0.0-6.0 [facility] Comment on above: Performed By: #### 5 0103 #### [facility] [address] [facility] Erythrocyte distribution width (RBC) [Ratio] 12.6 % Normal 11.5-15.0 [facility] Comment on above: Performed By: #### 5 0103 #### [facility] [address] [facility] [place] [address], [facility] Hematocrit (Bld) [Volume fraction] 46.4 % Normal 39.0-50.0 [facility] Comment on above: Performed By: #### 5 0103 #### [facility] [address] [facility] [address] Hemoglobin (Bld) [Mass/Vol] 15.6 g/dL Normal 13.0-17.0 [facility] Comment on above: Performed By: #### 5 0103 #### [facility] [address] [facility] IMMATURE GRANS 0.9 % Normal 0.0-1.0 [facility] Comment on above: Performed By: #### 5 0103 #### [facility] [address] [facility] [place] [address], [facility] Lymphocytes (Bld) [#/Vol] 2.3 10*3/uL Normal 1.2-4.0 [facility] Comment on above: Performed By: #### 5 0103 #### [facility] [address] [place] [address], [facility] Lymphocytes/100 WBC (Bld) 24.5 % Normal 20.0-45.0 [facility] Comment on above: Performed By: #### 5 0103 #### [facility] [address] [facility] [place] [address], [facility] MCH (RBC) [Entitic mass] 28.8 pg Normal 27.0-33.0 [facility] Comment on above: Performed By: #### 5 0103 #### [facility] [address] [facility] [place] [address], [facility] MCHC (RBC) [Mass/Vol] 33.6 g/dL Normal 32.0-35.0 [facility] Comment on above: Performed By: #### 5 0103 #### [facility] [address] [place] [address], [facility] MCV (RBC) [Entitic vol] 85.8 fL Normal 82.0-98.0 [facility] Comment on above: Performed By: #### 5 0103 #### [facility] [address] [facility] [place] [address], [facility] Monocytes (Bld) [#/Vol] 0.7 10*3/uL Normal 0.1-1.0 [facility] Comment on above: Performed By: #### 5 0103 #### [facility] [address] [place] [address], [facility] MONOS 7.1 % Normal 5.0-12.0 [facility] Comment on above: Performed By: #### 5 0103 #### [facility] [address] [facility] [place] [address], [facility] Neutrophils/100 WBC (Bld) 64.9 % Normal 40.0-72.0 [facility] Comment on above: Performed By: #### 5 0103 #### [facility] [address] [facility] [place] [address], [facility] Nucleated RBC/100 WBC (Bld) [Ratio] 0 % Normal 0-0 [facility] Comment on above: Performed By: #### 5 3 #### [facility] [address] [place] [address], [facility] PLAT CNT 317 10*3/uL Normal 150-400 [facility] Comment on above: Performed By: #### 5 0103 #### [facility] [address] [place] [address], [facility] RBC (Bld) [#/Vol] 5.41 10*6/uL Normal 4.20-5.70 [facility] Comment on above: Performed By: #### 5 0103 #### [facility] [address] [place] [address], [facility] WBC (Bld) [#/Vol] 9.50 10*3/uL Normal 4.00-10.60 [facility] Comment on above: Performed By: #### 5 0103 #### [facility] [address] [place] [address], [facility] COMP METABOLIC PANELon 03-22 Albumin [Mass/Vol] 4.1 g/dL Normal 3.5-5.7 [facility] Comment on above: Performed By: #### 3 6900, [id number] #### [facility] [address] [place] [address], [facility] ALKALINE PHOSPH 65 IU/L Normal 34-104 [facility] Comment on above: Performed By: #### 3 6900, [id number] #### [facility] [address] [place] [address], [facility] ALT [Catalytic activity/Vol] 31 U/L Normal 7-52 [facility] Comment on above: Performed By: #### 3 6900, 10531 #### [facility] [address] [place] [address], [facility] AST [Catalytic activity/Vol] 14 U/L Normal 13-39 [facility] Comment on above: Performed By: #### 3 690, [id number] #### [facility] [address] [place] [address], [place] Bilirubin [Mass/Vol] 0.2 mg/dL Low 0.3-1.0 [facility] Comment on above: Performed By: #### 3 6900, 02569 #### [facility] [address] [place] [address], [place] Calcium [Mass/Vol] 8.6 mg/dL Normal 8.6-10.3 [facility] Comment on above: Performed By: #### 3 6900, 76816 #### [facility] [address] [place] [address], [place] Chloride [Moles/Vol] 101 mmol/L Normal 98-107 [facility] Comment on above: Performed By: #### 3 6900, 03481 #### [facility] [address] [place] [address], [place] CO2 [Moles/Vol] 25 mmol/L Normal 21-31 [facility] Comment on above: Performed By: #### 3 6900, 56075 #### [facility] [address] [place] [address], [place] Creatinine [Mass/Vol] 0.95 mg/dL Normal 0.70-1.30 [facility] Comment on above: Performed By: #### 3 6900, 05923 #### [facility] [address] [place] [address], [place] GFR/1.73 sq M.predicted among blacks MDRD (S/P/Bld) [Vol rate/Area] mL/min/{1.73_m2} Normal >60 [facility] Comment on above: Performed By: #### 3 6900, [id number] #### [facility] [address] [place] [address], [place] GFR/1.73 sq M.predicted among non-blacks MDRD (S/P/Bld) [Vol rate/Area] mL/min/{1.73_m2} Normal >60 [facility] Comment on above: Performed By: #### 3 6900, 44484 #### [facility] [address] [place] [address], [facility] Glucose [Mass/Vol] 261 mg/dL High 70-100 [facility] Comment on above: Performed By: #### 3 690, 03332 #### [facility] [address] [place] [address], [facility] Potassium [Moles/Vol] 4.2 mmol/L Normal 3.5-5.1 [facility] Comment on above: Performed By: #### 3 6900, 66030 #### [facility] [address] [place] [address], [facility] Protein [Mass/Vol] 6.1 g/dL Normal 6.0-8.3 [facility] Comment on above: Performed By: #### 3 690, 05449 #### [facility] [address] [place] [address], [facility] Sodium [Moles/Vol] 133 mmol/L Low 136-145 [facility] Comment on above: Performed By: #### 3 690, 86239 #### [facility] [address] [facility] [address], [facility] Urea nitrogen [Mass/Vol] 12 mg/dL Normal 7-25 [facility] Comment on above: Performed By: #### 3 690, 20883 #### [facility] [address] [place] [address], [facility] CT ABDOMEN AND PELVIS WO CON TRASTon 03-22-2021 CT ABDOMEN AND PELVIS WO CONTRAST [facility] Department of Radiology [address] [place] [address] Patient Name: GROVER SEO : 1985 Sex: M Age: Race: White Pt. Location: [facility] Patient Status: E Ordered Date: 03/22/2021 4:50:00 PM Completed Date: 03/22/2021 05:21 PM Requesting Provider: ERICKA MCMILLAN Attending Provider: LEONIE LEDEZMA Report Copy To: Signs & Symptoms: Abdominal Pain(specify) History: See Comments Comments: Pancreatitis Exam: CT ABDOMEN AND PELVIS WO CONTRAST CT ABDOMEN AND PELVIS WO CONTRAST 03/22/2021 5:21 PM CLINICAL INDICATIONS: Abdominal Pain(specify) TECHNOLOGIST COMMENTS: RUQ and epigastric abd pain x 2 hours QUESTION FOR THE RADIOLOGIST: Pancreatitis PROTOCOL: Axial CT images of the abdomen and pelvis were obtained without IV contrast. TECHNIQUE: Multidetector CT axial slices of the abdomen and pelvis without IV contrast. Multiplanar reformats were performed and viewed on a separate workstation and reviewed to further define anatomy and possible pathology. All CT scans at this facility use dose modulation, iterative reconstruction, and/or weight based dosing when appropriate to reduce radiation dose to as low as reasonably achievable COMPARISON: None. FINDINGS: The lung bases are clear. The liver, spleen, kidneys, adrenal glands, and pancreas are unremarkable. The gallbladder is unremarkable. There are no renal stones or hydronephrosis. The bowel loops are grossly unremarkable. IMPRESSION: NO ACUTE FINDINGS. Electronically signed: Courtney Campbell. Transcribed by: [email or web address], User Resident: Electronically Signed by: COURTNEY CAMPBELL @ 03/22/2021 05:32 PM Normal [facility] Comment on above: Order Comment: Pancr eatitis LIPASE BLOODon 03-22-2021 LIPASE 17 Units/L Normal 11-82 [facility] Comment on above: Performed By: #### [id number] #### [facility] [address] [place] [address], [facility] POC GLUCOSE EDon 03-22-2021 Glucose [Mass/Vol] 291 mg/dL High 70-100 [facility] Comment on above: Performed By: #### [id number] #### [facility] [address] [place] [address], [facility] XR ANKLE LEFT (MIN 3 VIEWS)O rdered By: Oswaldo Weber on 01-19-2021 Soft tissue swelling with no evidence of an acute fracture. Suspect posttraumatic osteoarthritis of the left ankle. General Assembly Phone: EXAMINATION: THREE XRAY VIEWS OF THE LEFT ANKLE 01/19/2021 1:06 pm COMPARISON: None. HISTORY: ORDERING SYSTEM PROVIDED HISTORY: injury TECHNOLOGIST PROVIDED HISTORY: injury Reason for Exam: Injury, left ankle pain Acuity: Unknown Type of Exam: Unknown FINDINGS: There is left ankle soft tissue swelling with no evidence of an acute fracture or dislocation. There is mild left ankle joint space narrowing with associated degenerative spurring. General Assembly Phone: Berny, pn Incoming Radiant Results From [employer]Handle/[employer] - 01/19/2021 1:33 PM EDT EXAMINATION: THREE XRAY VIEWS OF THE LEFT ANKLE 01/19/2021 1:06 pm COMPARISON: None. HISTORY: ORDERING SYSTEM PROVIDED HISTORY: injury TECHNOLOGIST PROVIDED HISTORY: injury Reason for Exam: Injury, left ankle pain Acuity: Unknown Type of Exam: Unknown FINDINGS: There is left ankle soft tissue swelling with no evidence of an acute fracture or dislocation. There is mild left ankle joint space narrowing with associated degenerative spurring. IMPRESSION: Soft tissue swelling with no evidence of an acute fracture. Suspect posttraumatic osteoarthritis of the left ankle. General Assembly Phone: General Assembly Phone: Basic Metabolic ProfOrdered By: Errol White on 12-23-2020 Anion gap [Moles/Vol] 10 mmol/L 9 - 17 mmol/L General Assembly Phone: Calcium [Mass/Vol] 9.1 mg/dL 8.6 - 10. 4 mg/dL General Assembly Phone: Chloride [Moles/Vol] 97 mmol/L Low 98 - 10 7 mmol/L General Assembly Phone: CO2 [Moles/Vol] 27 mmol/L 20 - 31 mmol/L General Assembly Phone: Creatinine [Mass/Vol] 0.86 mg/dL 0.70 - 1.20 mg/dL General Assembly Phone: GFR >60 >60 mL/min [employer] Phone: GFR Non- >60 >60 mL/min General Assembly Phone: GFR/1.73 sq M.predicted MDRD (S/P/Bld) [Vol rate/Area] General Assembly Phone: Comment on above: Average GFR for 30-3 9 years old: 107 mL/min/1.73sq m Chronic Kidney Disease: <60 mL/min/1.73sq m Kidney failure: <15 mL/min/1.73sq m eGFR calculated using average adult body mass. Additional eGFR calculator available at: http://www.VirnetX/multiple_crcl_2012.htm GFR/1.73 sq M.predicted MDRD (S/P/Bld) [Vol rate/Area] NOT REPORTED General Assembly Phone: Glucose [Mass/Vol] 446 mg/dL Critically high 70 - 99 mg/d L General Assembly Phone: Interpretation and review of laboratory results Abnormal General Assembly Phone: Potassium [Moles/Vol] 4.0 mmol/L 3.7 - 5.3 mmol/L General Assembly Phone: Sodium [Moles/Vol] 134 mmol/L Low 135 - 144 mmol/L General Assembly Phone: Urea nitrogen (BldV) [Mass/Vol] 11 mg/dL 6 - 20 mg/dL General Assembly Phone: Urea nitrogen/Creatinine (Bld) [Mass ratio] 13 General Assembly Phone: General Assembly Phone: D-Dimer, QuantitativeOrdered By: Errol White on 12-23-2020 D-Dimer, Quant 0.34 [employer] Phone: Comment on above: When combined with a low clinical probability, a D dimer value of <0.50 mg/L FEU is considered negative for DVT and PE (negative predictive value of 98%, sensitivity of 97%). If this test is not being used to help rule out DVT and PE, then the following reference range should be utilized: 0.00 - 0.59 mg/L FEU. The D-Dimer assay is intended for use as an aid in the diagnosis of venous thromboembolism (DVT and PE) and the results should be interpreted in conjunction with the patient's medical history, clinical presentation, and other findings. Elevated levels of D-dimer activity can be seen in any state of coagulation activation and is not recommended in patients with therapeutic dose anticoagulant therapy for >24 hours, fibrinolytic therapy within the previous 7 days, trauma or surgery within the previous 4 weeks, disseminated malignancies, aortic aneurysm, sepsis, severe infections, pneumonia, severe skin infections, liver cirrhosis, advanced age, coronary disease, diabetes, and . A very low percentage of patients with DVT may yield D-dimer results below the cutoff of 0.5 mg/L FEU. This is known to be more prevalent in patients with distal DVT. General Assembly Phone: POC Glucose FingerstickOrder ed By: Errol White on 12-23-2020 Glucose [Mass/Vol] 368 mg/dL High 75 - 110 mg/dL General Assembly Phone: Interpretation and review of laboratory results Abnormal General Assembly Phone: General Assembly Phone: TroponinOrdered By: Errol White on 12-23-2020 Troponin Interp NOT REPORTED [employer] Work Phone: Troponin T NOT REPORTED <0.03 ng/mL [employer] Work Phone: Troponin, High Sensitivity 13 ng/L 0 - 22 ng/L General Assembly Phone: Comment on above: High Sensitivity Troponin values cannot be compared with other Troponin methodologies. Patients with high levels of Biotin oral intake (i.e >5mg/day) may have falsely decreased Troponin levels. Samples collected within 8 hours of biotin intake may require additional information for diagnosis. General Assembly Phone: XR CHEST 1 VIEWOrdered By: Ted White on 12-23-2020 No acute process. [employer] Work Phone: EXAMINATION: ONE XRAY VIEW OF THE CHEST 12/23/2020 9:32 pm COMPARISON: CT chest September 12, 2019 HISTORY: ORDERING SYSTEM PROVIDED HISTORY: left side chest pain, hx of covid over a month ago TECHNOLOGIST PROVIDED HISTORY: left side chest pain, hx of covid over a month ago Reason for Exam: chest pain Acuity: Unknown Type of Exam: Unknown Relevant Medical/Surgical History: chest pain x 1 week, hx of asthma FINDINGS: The lungs are without acute focal process. There is no effusion or pneumothorax. The cardiomediastinal silhouette is without acute process. The osseous structures are without acute process. General Assembly Phone: Berny, [facility] Incoming Radiant Results From [employer]Handle/[employer] - 12/23/2020 9:43 PM EDT EXAMINATION: ONE XRAY VIEW OF THE CHEST 12/23/2020 9:32 pm COMPARISON: CT chest September 12, 2019 HISTORY: ORDERING SYSTEM PROVIDED HISTORY: left side chest pain, hx of covid over a month ago TECHNOLOGIST PROVIDED HISTORY: left side chest pain, hx of covid over a month ago Reason for Exam: chest pain Acuity: Unknown Type of Exam: Unknown Relevant Medical/Surgical History: chest pain x 1 week, hx of asthma FINDINGS: The lungs are without acute focal process. There is no effusion or pneumothorax. The cardiomediastinal silhouette is without acute process. The osseous structures are without acute process. IMPRESSION: No acute process. [employer] Work Phone: [employer] Work Phone: CBC WITH AUTO DIFFERENTIALOr dered By: Maria Del Rosario Ellison on 09-12-2019 Absolute Eos # 0.11 [facility] Work Phone: Absolute Immature Granulocyte 0.06 [employer] Work Phone: Absolute Lymph # 1.56 [employer] Work Phone: Absolute Mccurtain # 0.72 [employer] Work Phone: Basophils (Bld) [#/Vol] 0.05 10*3/uL General Assembly Phone: Basophils/100 WBC (Bld) 1 % 0 - 2 % General Assembly Phone: Differential Type NOT REPORTED General Assembly Phone: Eosinophils/100 WBC (Bld) 1 % 1 - 4 % General Assembly Phone: Erythrocyte distribution width (RBC) [Ratio] 12.0 % 11.8 - 14.4 % General Assembly Phone: Hematocrit (Bld) [Volume fraction] 51.5 % High 40.7 - 50.3 % General Assembly Phone: Hemoglobin (Bld) [Mass/Vol] 16.9 g/dL 13 - 17 g/dL [employer] Work Phone: Immature granulocytes/100 WBC (Bld) 1 % High 0 General Assembly Phone: Interpretation and review of laboratory results Abnormal General Assembly Phone: Lymphocytes/100 WBC (Bld) 16 % Low 24 - 43 % General Assembly Phone: MCH (RBC) [Entitic mass] 28.4 pg 25.2 - 33.5 pg General Assembly Phone: MCHC (RBC) [Mass/Vol] 32.8 g/dL 28.4 - 34.8 g/dL General Assembly Phone: MCV (RBC) [Entitic vol] 86.4 fL 82.6 - 102.9 fL General Assembly Phone: Monocytes/100 WBC (Bld) 7 % 3 - 12 % General Assembly Phone: NRBC Automated 0.0 0.0 per 100 WBC General Assembly Phone: Platelet Estimate NOT REPORTED General Assembly Phone: Platelet mean volume (Bld) [Entitic vol] 9.7 fL 8.1 - 13.5 fL General Assembly Phone: Platelets (Bld) [#/Vol] 340 10*3/uL General Assembly Phone: RBC (Bld) [#/Vol] 5.96 10*6/uL High 4.21 - 5.7 7 m/uL General Assembly Phone: RBC morphology finding Nom (Bld) NOT REPORTED General Assembly Phone: Segmented neutrophils/100 WBC (Bld) 74 % High 36 - 65 % General Assembly Phone: Segs Absolute 7.52 [email or web address] Work Phone: WBC (Bld) [#/Vol] 10.0 10*3/uL General Assembly Phone: WBC Morphology NOT REPORTED [facility] [facility] Work Phone: CT CERVICAL SPINE WO CONTRAS TOrdered By: Maria Del Rosario Ellison on 09-12-[address] examination of the cervical spine. General Assembly Phone: EXAMINATION: CT OF THE CERVICAL SPINE WITHOUT CONTRAST 09/12/2019 10:08 am TECHNIQUE: CT of the cervical spine was performed without the administration of intravenous contrast. Multiplanar reformatted images are provided for review. Dose modulation, iterative reconstruction, and/or weight based adjustment of the mA/kV was utilized to reduce the radiation dose to as low as reasonably achievable. COMPARISON: None. HISTORY: ORDERING SYSTEM PROVIDED HISTORY: midline ttp s/p fall Reason for Exam: fall from roof, ten feet Relevant Medical/Surgical History: right pain right FINDINGS: BONES/ALIGNMENT: No acute fracture or traumatic malalignment. DEGENERATIVE CHANGES: No significant degenerative changes. SOFT TISSUES: No prevertebral soft tissue swelling. General Assembly Phone: Berny, pn Incoming Radiant Results From [employer]Handle[employer] - 09/12/2019 10:40 AM EST EXAMINATION: CT OF THE CERVICAL SPINE WITHOUT CONTRAST 09/12/2019 10:08 am TECHNIQUE: CT of the cervical spine was performed without the administration of intravenous contrast. Multiplanar reformatted images are provided for review. Dose modulation, iterative reconstruction, and/or weight based adjustment of the mA/kV was utilized to reduce the radiation dose to as low as reasonably achievable. COMPARISON: None. HISTORY: ORDERING SYSTEM PROVIDED HISTORY: midline ttp s/p fall Reason for Exam: fall from roof, ten feet Relevant Medical/Surgical History: right pain right FINDINGS: BONES/ALIGNMENT: No acute fracture or traumatic malalignment. DEGENERATIVE CHANGES: No significant degenerative changes. SOFT TISSUES: No prevertebral soft tissue swelling. IMPRESSION: Unremarkable CT examination of the cervical spine. General Assembly Phone: CT CHEST ABDOMEN PELVIS W CO NTRASTOrdered By: Maria Del Rosario Ellison on 09-12-2019 1. No acute traumatic injury identified. 2. Old anterior right 3rd rib fracture. 3. Hepatic steatosis. 4. Scattered tiny noncalcified pulmonary nodules, likely a sequela of prior inflammatory process or infection. If the patient has risk factors for malignancy, consider noncontrast chest CT follow-up in 12 months. General Assembly Phone: EXAMINATION: CT OF THE CHEST, ABDOMEN, AND PELVIS WITH CONTRAST 09/12/2019 10:08 am TECHNIQUE: CT of the chest, abdomen and pelvis was performed with the administration of intravenous contrast. Multiplanar reformatted images are provided for review. Dose modulation, iterative reconstruction, and/or weight based adjustment of the mA/kV was utilized to reduce the radiation dose to as low as reasonably achievable. COMPARISON: None HISTORY: ORDERING SYSTEM PROVIDED HISTORY: fall from roof, chest and right abdominal pain TECHNOLOGIST PROVIDED HISTORY: fall from roof, chest and right abdominal pain Reason for Exam: fall ten feet from roof, rib pain Acuity: Unknown Type of Exam: Unknown Relevant Medical/Surgical History: asthma FINDINGS: Chest: Mediastinum the heart and great vessels reveal no acute findings. No pericardial effusion. No mediastinal hematoma. No lymphadenopathy. Lungs/pleura: No acute airspace disease, no pneumothorax or effusion. The central airway is patent. Bilateral tiny noncalcified pulmonary nodules are noted measuring 2-3 mm. There also pleural based nodules versus areas of scarring. Soft Tissues/Bones: Old anterior right 3rd rib fracture with surrounding callus formation. No acute fracture identified. Abdomen/Pelvis: Organs: No solid organ injury identified. Hepatic steatosis. GI/Bowel: There is no bowel dilatation or wall thickening identified. Pelvis: No acute findings. Small fat containing inguinal hernias. Peritoneum/Retroperi toneum: No free air or free fluid. The aorta is normal in caliber. The visceral branches are patent. No lymphadenopathy. Bones/Soft Tissues: No acute abnormality identified. [employer] Work Phone: Berny, [facility] Incoming Radiant Results From [employer]Handle[employer] - 09/12/2019 10:43 AM EST EXAMINATION: CT OF THE CHEST, ABDOMEN, AND PELVIS WITH CONTRAST 09/12/2019 10:08 am TECHNIQUE: CT of the chest, abdomen and pelvis was performed with the administration of intravenous contrast. Multiplanar reformatted images are provided for review. Dose modulation, iterative reconstruction, and/or weight based adjustment of the mA/kV was utilized to reduce the radiation dose to as low as reasonably achievable. COMPARISON: None HISTORY: ORDERING SYSTEM PROVIDED HISTORY: fall from roof, chest and right abdominal pain TECHNOLOGIST PROVIDED HISTORY: fall from roof, chest and right abdominal pain Reason for Exam: fall ten feet from roof, rib pain Acuity: Unknown Type of Exam: Unknown Relevant Medical/Surgical History: asthma FINDINGS: Chest: Mediastinum the heart and great vessels reveal no acute findings. No pericardial effusion. No mediastinal hematoma. No lymphadenopathy. Lungs/pleura: No acute airspace disease, no pneumothorax or effusion. The central airway is patent. Bilateral tiny noncalcified pulmonary nodules are noted measuring 2-3 mm. There also pleural based nodules versus areas of scarring. Soft Tissues/Bones: Old anterior right 3rd rib fracture with surrounding callus formation. No acute fracture identified. Abdomen/Pelvis: Organs: No solid organ injury identified. Hepatic steatosis. GI/Bowel: There is no bowel dilatation or wall thickening identified. Pelvis: No acute findings. Small fat containing inguinal hernias. Peritoneum/Retroperi toneum: No free air or free fluid. The aorta is normal in caliber. The visceral branches are patent. No lymphadenopathy. Bones/Soft Tissues: No acute abnormality identified. IMPRESSION: 1. No acute traumatic injury identified. 2. Old anterior right 3rd rib fracture. 3. Hepatic steatosis. 4. Scattered tiny noncalcified pulmonary nodules, likely a sequela of prior inflammatory process or infection. If the patient has risk factors for malignancy, consider noncontrast chest CT follow-up in 12 months. General Assembly Phone: Comprehensive Metabolic Pane lOrdered By: Maria Del Rosario Ellison on 09-12-2019 Albumin [Mass/Vol] 4.5 g/dL 3.5 - 5.2 g/dL General Assembly Phone: Albumin/Globulin [Mass ratio] 1.7 {ratio} General Assembly Phone: ALP [Catalytic activity/Vol] 73 U/L 40 - 129 U/L General Assembly Phone: ALT [Catalytic activity/Vol] 161 U/L High 5 - 41 U/L General Assembly Phone: Anion gap [Moles/Vol] 12 mmol/L 9 - 17 mmol/L General Assembly Phone: AST [Catalytic activity/Vol] 132 U/L High <40 General Assembly Phone: Bilirubin [Mass/Vol] 0.84 mg/dL 0.3 - 1 .2 mg/dL General Assembly Phone: Bun/Cre Ratio NOT REPORTED [address] Work Phone: Calcium [Mass/Vol] 9.6 mg/dL 8.6 - 10. 4 mg/dL General Assembly Phone: Chloride [Moles/Vol] 96 mmol/L Low 98 - 10 7 mmol/L General Assembly Phone: CO2 [Moles/Vol] 24 mmol/L 20 - 31 mmol/L General Assembly Phone: Creatinine [Mass/Vol] 0.75 mg/dL 0.7 - 1.2 mg/dL General Assembly Phone: GFR >60 >60 mL/min [employer] Phone: GFR Comment General Assembly Phone: Comment on above: Average GFR for 30-3 9 years old: 107 mL/min/1.73sq m Chronic Kidney Disease: <60 mL/min/1.73sq m Kidney failure: <15 mL/min/1.73sq m eGFR calculated using average adult body mass. Additional eGFR calculator available at: http://www.VirnetX/multiple_crcl_2012.htm GFR Non- >60 >60 mL/min General Assembly Phone: GFR Staging NOT REPORTED [employer] Work Phone: Glucose [Mass/Vol] 193 mg/dL High 70 - 99 mg/dL [facility] [employer] Phone: Interpretation and review of laboratory results Abnormal [facility] Phone: Potassium [Moles/Vol] 4.2 mmol/L 3.7 - 5.3 mmol/L [facility] Phone: Protein [Mass/Vol] 7.1 g/dL 6.4 - 8.3 g/dL [facility] Phone: Sodium [Moles/Vol] 132 mmol/L Low 135 - 144 mmol/L General Assembly Phone: Urea nitrogen [Mass/Vol] 8 mg/dL 6 - 20 mg/dL [facility] [employer] Work Phone: Vital Signs Date Time Vital Sign Value Performing Clinician Facility 06-22-2024 21:24-0500 Heart rate 117 /min [facility] 06-22-2024 21:24-0500 SaO2% (BldA) [Mass fraction] 96 % Mami Taveras MD [facility] 06-22-2024 21:19-0500 Respiratory rate 13 /min [facility] 06-22-2024 21:11-0500 Body temperature 98.01 [degF] [facility] 06-22-2024 21:10-0500 Diastolic blood pressure 77 mm[Hg] Mami Taveras MD [facility] 06-22-2024 21:10-0500 Systolic blood pressure 124 mm[Hg] Mami Taveras MD [facility] 11-07-2023 12:32-0400 Body height 185.4 cm Mateo Lois COMBINER OPERATOR-[employer] Work Phone: [facility] 11-07-2023 12:32-0400 Body mass index (BMI) [Ratio] 38 kg/m2 Mateo Millermichell COMBINER OPERATOR-[employer] Work Phone: [facility] [place] [facility] [employer] [facility] 11-07-2023 12:32-0400 Body temperature 98.01 [degF] Mateo Millermichell COMBINER OPERATOR-[employer] Work Phone: [facility] 11-07-2023 12:32-0400 Body weight 130.64 kg Mateo Lois COMBINER OPERATOR-[employer] Work Phone: [facility] 11-07-2023 12:32-0400 Diastolic blood pressure 74 mm[Hg] Mateo Ferrer APRN-SALT [employer]IFTER Work Phone: [facility] [place] [facility] [employer] [facility] 11-07-2023 12:32-0400 Heart rate 96 /min Mateo Ferrer APRN-[employer] Work Phone: [facility] 11-07-2023 12:32-0400 Respiratory rate 12 /min Mateo SAINI Work Phone: [employer] 11-07-2023 12:32-0400 SaO2% (BldA) [Mass fraction] 99 % Mateo SAINI Work Phone: [employer] 11-07-2023 12:32-0400 Systolic blood pressure 123 mm[Hg] Mateo SAINI Work Phone: [facility] 03-31-2023 09:14-0400 Body mass index (BMI) [Ratio] 42.81 kg/m2 Makenzie Clara [facility] [employer] 03-31-2023 09:14-0400 Body temperature 96.6 [degF] Makenzie Clara [facility] [employer] 03-31-2023 09:14-0400 Body weight 147.19 kg Makenzie Clara [facility] [employer] 03-31-2023 09:14-0400 Diastolic blood pressure 86 mm[Hg] Makenzie Clara [facility] [employer] 03-31-2023 09:14-0400 Heart rate 102 /min Makenzie Clara [facility] [employer] 03-31-2023 09:14-0400 SaO2% (BldA) [Mass fraction] 96 % Makenzie Clara [facility] [employer] 03-31-2023 09:14-0400 Systolic blood pressure 126 mm[Hg] Makenzie Clara [facility] [employer] 02-03-2023 07:06-0400 Body mass index (BMI) [Ratio] 42.59 kg/m2 Makenzie Clara [facility] [employer] 02-03-2023 07:06-0400 Body temperature 97.3 [degF] Makenzie Clara [facility] [employer] 02-03-2023 07:06-0400 Body weight 146.42 kg Makenzie Clara [facility] [employer] 02-03-2023 07:06-0400 Diastolic blood pressure 83 mm[Hg] Makenzie Clara [facility] [employer] 02-03-2023 07:06-0400 Heart rate 103 /min Makenzie Clara [facility] [employer] 02-03-2023 07:06-0400 SaO2% (BldA) [Mass fraction] 97 % [facility]akenzie Clara [facility] [place] 02-03-2023 07:06-0400 Systolic blood pressure 134 mm[Hg] Makenzie Clara [facility] [place] 01-07-2023 07:06-0400 Body mass index (BMI) [Ratio] 43.56 kg/m2 Makenzie Clara [facility] [place] 01-07-2023 07:06-0400 Body temperature 98.01 [degF] Makenzie Clara [facility] [employer] [facility] [place] 01-07-2023 07:06-0400 Body weight 149.78 kg Makenzie Clara [facility] [employer] 01-07-2023 07:06-0400 Diastolic blood pressure 81 mm[Hg] Makenzie Clara [facility] [place] 01-07-2023 07:06-0400 Heart rate 104 /min Makenzie Clara [facility] [employer] 01-07-2023 07:06-0400 SaO2% (BldA) [Mass fraction] 95 % Makenzie Clara [facility] 01-07-2023 07:06-0400 Systolic blood pressure 125 mm[Hg] Makenzie Clara [facility] [place] 11-20-2022 07:07-0400 Body mass index (BMI) [Ratio] 41.99 kg/m2 Makenzie Clara [facility] [place] 11-20-2022 07:07-0400 Body weight 144.38 kg Makenzie Clara [facility] [employer] 11-20-2022 07:07-0400 Diastolic blood pressure 86 mm[Hg] Makenzie Clara [facility] 11-20-2022 07:07-0400 Heart rate 99 /min Makenzie Clara [facility] Contractually [facility] [employer] 11-20-2022 07:07-0400 SaO2% (BldA) [Mass fraction] 94 % Makenzie Clara [facility] Contractually [facility] 11-20-2022 07:07-0400 Systolic blood pressure 123 mm[Hg] Makenzie Clara [facility] [place] 10-30-2022 07:03-0400 Body mass index (BMI) [Ratio] 41.65 kg/m2 Makenzie Clara [facility] [place] 10-30-2022 07:03-0400 Body temperature 96.8 [degF] Makenzie Claar [facility] [place] 10-30-2022 07:03-0400 Body weight 143.2 kg Makenzie Clara [facility] 10-30-2022 07:03-0400 Diastolic blood pressure 72 mm[Hg] Makenzie Clara [facility] 10-30-2022 07:03-0400 Heart rate 100 /min Makenzie Clara [facility] 10-30-2022 07:03-0400 SaO2% (BldA) [Mass fraction] 92 % Makenzie Clara [facility]Neighbor[facility] [place] 10-30-2022 07:03-0400 Systolic blood pressure 106 mm[Hg] Makenzie Clraa [facility] [place] 10-23-2022 07:00-0400 Body temperature 97.5 [degF] Makenzie Clara [facility] [place] 10-23-2022 07:00-0400 Diastolic blood pressure 91 mm[Hg] Makenzie Clara [facility] [place] 10-23-2022 07:00-0400 Heart rate 103 /min Makenzie Clara [facility] [employer] 10-23-2022 07:00-0400 SaO2% (BldA) [Mass fraction] 95 % Makenzie Clara [facility]IT[facility] [place] 10-23-2022 07:00-0400 Systolic blood pressure 141 mm[Hg] Makenzie Clara [facility] HEALTH UNITVisante [facility] [place] 10-09-2022 15:35-0500 Body mass index (BMI) [Ratio] 42.09 kg/m2 Brandy [facility] [place] 10-09-2022 15:35-0500 Body weight 144.7 kg Brandy BENSON [employer] 10-09-2022 15:35-0500 Diastolic blood pressure 85 mm[Hg] Brandy [facility] [place] 10-09-2022 15:35-0500 Heart rate 102 /min Brandy [facility] [place] 10-09-2022 15:35-0500 SaO2% (BldA) [Mass fraction] 99 % Brandy HI [facility] [place] 10-09-2022 15:35-0500 Systolic blood pressure 135 mm[Hg] Brandy [facility] [place] 09-26-2022 08:07-0500 Body mass index (BMI) [Ratio] 42.81 kg/m2 Brandy [facility] [place] 09-26-2022 08:07-0500 Body temperature 97.7 [degF] Brandy ZARAGOZAVisante [facility] [place] 09-26-2022 08:07-0500 Body weight 147.19 kg Brandy [facility] [place] 09-26-2022 08:07-0500 Diastolic blood pressure 90 mm[Hg] Brandy [facility] [place] 09-26-2022 08:07-0500 Heart rate 82 /min Brandy [facility] [place] 09-26-2022 08:07-0500 SaO2% (BldA) [Mass fraction] 96 % Brandy [facility]ENTER[facility] [place] 09-26-2022 08:07-0500 Systolic blood pressure 123 mm[Hg] Brandy BENSON [facility] [place] 09-19-2022 15:29-0500 Body temperature 97.5 [degF] Brandy ZARAGOZAVisante [facility] [place] 09-19-2022 15:29-0500 Diastolic blood pressure 86 mm[Hg] Brandy [facility]ENTER[facility] [place] 09-19-2022 15:29-0500 Heart rate 81 /min Brandy [facility] [place] 09-19-2022 15:29-0500 SaO2% (BldA) [Mass fraction] 99 % Brandy [facility]ENTERVis[facility] [place] 09-19-2022 15:29-0500 Systolic blood pressure 135 mm[Hg] Brandy [facility]ENTERVis[facility] [place] 06-22-2022 22:24-0500 Body height 185.4 cm Chely Samson MD Work Phone: [facility]ENTERVis[facility] [employer]OG[employer]CH 06-22-2022 22:24-0500 Body mass index (BMI) [Ratio] 41.56 kg/m2 Chely Samson MD Work Phone: [facility] 06-22-2022 22:24-0500 Body temperature 98.49 [degF] Chely Samson MD Work Phone: [facility] 06-22-2022 22:24-0500 Body weight 142.88 kg Chely Samson MD Work Phone: [facility] 06-22-2022 22:24-0500 Diastolic blood pressure 97 mm[Hg] Chely Samson MD Work Phone: [facility] 06-22-2022 22:24-0500 Heart rate 102 /min Chely Samson MD Work Phone: [facility] 06-22-2022 22:24-0500 Respiratory rate 18 /min Chely Samson MD Work Phone: [facility] 06-22-2022 22:24-0500 SaO2% (BldA) [Mass fraction] 97 % Chely Samson MD Work Phone: [facility] 06-22-2022 22:24-0500 Systolic blood pressure 141 mm[Hg] Chely Samson MD Work Phone: [facility] [employer] 01-19-2021 12:20-0400 Diastolic blood pressure 72 mm[Hg] Oswaldo Weber MD Work Phone: [employer] Work Phone: 01-19-2021 12:20-0400 Systolic blood pressure 131 mm[Hg] Oswaldo Weber MD Work Phone: [employer] Work Phone: 01-19-2021 12:19-0400 Body height 185.4 cm Oswaldo Weber MD Work Phone: [employer] Work Phone: 01-19-2021 12:19-0400 Body mass index (BMI) [Ratio] 40.9 kg/m2 Oswaldo Weber MD Work Phone: [employer] Work Phone: 01-19-2021 12:19-0400 Body temperature 98.4 [degF] Oswaldo Weber MD Work Phone: [employer] Work Phone: 01-19-2021 12:19-0400 Body weight 140.62 kg Oswaldo Weber MD Work Phone: [employer] Work Phone: 01-19-2021 12:19-0400 Heart rate 88 /min Oswaldo Weber MD Work Phone: [employer] Work Phone: 01-19-2021 12:19-0400 Respiratory rate 18 /min Oswaldo Weber MD Work Phone: [employer] Work Phone: 01-19-2021 12:19-0400 SaO2% (BldA) [Mass fraction] 95 % Oswaldo Webre MD Work Phone: [employer] Work Phone: 12-23-2020 20:29-0400 Body height 185.4 cm Errol White MD Work Phone: [employer] Work Phone: 12-23-2020 20:29-0400 Body mass index (BMI) [Ratio] 43.54 kg/m2 Errol White MD Work Phone: [employer] Work Phone: 12-23-2020 20:29-0400 Body temperature 98.71 [degF] Errol White MD Work Phone: [employer] Work Phone: 12-23-2020 20:29-0400 Body weight 149.69 kg Errol White MD Work Phone: [employer] Work Phone: 12-23-2020 20:29-0400 Diastolic blood pressure 74 mm[Hg] Errol White MD Work Phone: [employer] Work Phone: 12-23-2020 20:29-0400 Heart rate 105 /min Errol White MD Work Phone: [employer] Work Phone: 12-23-2020 20:29-0400 Respiratory rate 16 /min Errol White MD Work Phone: [employer] Work Phone: 12-23-2020 20:29-0400 SaO2% (BldA) [Mass fraction] 94 % Errol White MD Work Phone: [employer] Work Phone: 12-23-2020 20:29-0400 Systolic blood pressure 143 mm[Hg] Errol White MD Work Phone: [employer] Work Phone: 09-12-2019 09:01-0500 Body temperature 97 [degF] Tangela Mohr MD Work Phone: [employer] Work Phone: 09-12-2019 09:01-0500 Diastolic blood pressure 103 mm[Hg] Tangela Mohr MD Work Phone: [employer] Work Phone: 09-12-2019 09:01-0500 Heart rate 113 /min Tangela Mohr MD Work Phone: [employer] Work Phone: 09-12-2019 09:01-0500 Respiratory rate 15 /min Tangela Mohr MD Work Phone: [employer] Work Phone: 09-12-2019 09:01-0500 SaO2% (BldA) [Mass fraction] 100 % Tangela Mohr MD Work Phone: [facility] Work Phone: 09-12-2019 09:01-0500 Systolic blood pressure 153 mm[Hg] Tangela Mohr MD Work Phone: [facility] Work Phone: Encounters Encounter Date Encounter Type Care Provider Facility Start: 06-22-2024 End: 06-22-2024 Emergency department patient visit Mami Taveras MD [facility] ED Comment on above: Injury of head, init ial encounter (Primary Dx) Start: 05-04-2024 End: 05-04-2024 Emergency department patient visit FEDERICO HERNANDEZ [facility] Start: 04-30-2024 End: 04-30-2024 Emergency department patient visit DAYA CHOI [facility] Start: 04-07-2024 End: 04-09-2024 Evaluation and management of inpatient SABINA Yessy TAYLORAries [facility] Start: 01-26-2024 End: 01-26-2024 Emergency department patient visit KEV FLORES [facility] Start: 11-18-2023 End: 11-18-2023 ambulatory RENALDO RICE [facility] Start: 11-07-2023 End: 11-07-2023 ambulatory [facility] Start: 11-07-2023 End: 11-07-2023 Office outpatient visit 15 minutes [facility] COMBINER OPERATOR-[employer] Work Phone: [facility] [place] Comment on above: Influenza A (Primary Dx); Viral URI Start: 06-24-2023 End: 06-26-2023 ambulatory [facility] Start: 06-11-2023 End: 06-11-2023 Emergency department patient visit [facility] Start: 04-10-2023 End: 04-10-2023 Subsequent hospital visit by physician Makenzie Elizabeth [facility] Medication Management Start: 04-03-2023 End: 04-03-2023 ambulatory TANGELA JOHNSON [facility] Start: 03-31-2023 End: 03-31-2023 ambulatory [facility] Bharti [facility] Start: 03-31-2023 End: 03-31-2023 Subsequent hospital visit by physician Makenzie Elizabeth [facility] Medication Management Start: 03-03-2023 End: 03-03-2023 ambulatory [facility] Start: 02-03-2023 End: 02-03-2023 ambulatory [facility] Start: 02-03-2023 End: 02-03-2023 Subsequent hospital visit by physician Makenzie Elizabeth [facility] Medication Management Start: 01-07-2023 End: 01-07-2023 Subsequent hospital visit by physician Makenzie Elizabeth [facility] Comment on above: Decreased sex drive Start: 11-28-2022 End: 11-28-2022 Subsequent hospital visit by physician Armando Alexis APRN - NATALIE Work Phone: [facility] Comment on above: Polyarthralgia; Screening for HIV (human immunodeficiency virus); Elevated hemoglobin (HCC) Start: 11-20-2022 End: 11-20-2022 Subsequent hospital visit by physician Makenzie Elizabeth [facility] Medication Management Start: 10-30-2022 End: 10-30-2022 Subsequent hospital visit by physician Makenzie Elizabeth [facility] Medication Management Start: 10-23-2022 End: 10-23-2022 Subsequent hospital visit by physician Makenzie Elizabeth [facility] Medication Management Start: 10-09-2022 End: 10-09-2022 Subsequent hospital visit by physician Brandy Hurtado [facility] Medication Management Start: 09-26-2022 End: 09-26-2022 Subsequent hospital visit by physician Armando Alexis APRN - [employer] Work Phone: [facility] Comment on above: Screening for thyroi d disorder; Type 2 diabetes mellitus without complication, unspecified whether skilled nursing insulin use (HCC) Start: 09-26-2022 End: 09-26-2022 Subsequent hospital visit [facility] Start: 09-19-2022 End: 09-19-2022 Subsequent hospital visit by physician Brandy [facility] Medication Management Start: 06-22-2022 End: 06-23-2022 Emergency department patient visit Chely Samson MD Work Phone: [facility] ED Comment on above: Injury of toe on rig ht foot, initial encounter (Primary Dx) Start: 03-28-2021 End: 03-28-2021 Emergency department patient visit [facility] Start: 03-22-2021 End: 03-22-2021 Emergency department patient visit LEONIE LEDEZMA [facility] Start: 01-19-2021 End: 01-19-2021 Emergency department patient visit Oswaldo Weber MD Work Phone: [facility] Comment on above: Sprain of left ankle , unspecified ligament, initial encounter (Primary Dx) Start: 12-23-2020 End: 12-23-2020 Emergency department patient visit Errol White MD Work Phone: [facility] Comment on above: Chest wall pain (Dayan vlad Dx); Hyperglycemia Start: 09-12-2019 End: 09-12-2019 Emergency department patient visit Tangela Mohr MD Work Phone: [facility] ED Comment on above: Fall, initial encoun ter (Primary Dx); Multiple contusions; Contusion of ribs, right, initial encounter; Muscle spasm Methamphetamine depe ndence (disorder) Dr Maria Elena Orr [place] Procedures Date Procedure Procedure Detail Performing Clinician Start: 06-22-2024 Ct head/brain w/o co ntrast material Ashley Dalton MD Work Phone: Start: 11-07-2023 POCT INFLUENZA A/INF LUENZA B/SARS-COV-2 VERITOR Mateo Ferrer COMBINER OPERATOR-[employer] Work Phone: Start: 01-07-2023 Assay of testosterone total [facility] Work Phone: Start: 11-28-2022 Antibody hiv-1&hiv-2 single result Armando Alexis APRN [facility] Work Phone: Start: 11-28-2022 Blood count complete automated [facility] Work Phone: Start: 11-20-2022 Hemoglobin glycosylated a1c Historical Wendy NOLAN Start: 09-26-2022 Comprehensive metabo lic panel Armando Alexis [facility] Work Phone: Start: 09-26-2022 Lipid panel Armando Alexis [facility] Work Phone: Start: 06-22-2022 Radex foot complete minimum 3 views Chely Samson MD Work Phone: Start: 04-23-2021 Adult depression scr eening assessment Mateo Ferrer [facility] Work Phone: Start: 01-19-2021 Radex ankle complete minimum 3 views Oswaldo Weber MD Work Phone: Start: 12-23-2020 Glucose blood reagent strip Errol White MD Work Phone: Start: 12-23-2020 Radiologic exam ches t single view Errol White MD Work Phone: Start: 12-23-2020 Basic metabolic pane l calcium total Errol White MD Work Phone: Start: 09-12-2019 Ct cervical spine w/ o contrast material Maria Del Rosario Ellison MD Work Phone: Start: 09-12-2019 Ct thorax w/contrast material Maria Del Rosario Ellison MD Work Phone: Start: 09-12-2019 Comprehensive metabo lic panel Maria Del Rosario Ellison MD Work Phone: Plan of Treatment Date Care Activity Detail Author Start: 06-10-2025 Depression Monitoring Depression [facility] Start: 04-09-2025 GFR test (Diabetes, CKD 3-4, OR last GFR 15-59) GFR test (Diabetes, CKD 3-4, OR last GFR 15-59) [facility] Start: 11-17-2024 Diabetic foot examination Diabetic foot exam [facility] Start: 11-17-2024 Hepatitis B vaccine (1 of 3 - 19+ 3-dose series) Hepatitis B vaccine (1 of 3 - 19+ 3-dose series) [facility] Comment on above: Postponed from 05/03 (Not Indicated) Start: 09-16-2024 End: 09-16-2024 Patient encounter procedure 09/16/2024 4:45 PM EST Office Visit [facility] [address] [place] [address] Samaria Bolivar APRN - NP [address] [place] [address] DM, HTN, HLD [facility] Comment on above: DM, HTN, HLD Start: 09-10-2024 Hemoglobin A1c measurement A1C test (Diabetic or Prediabetic) [facility] Start: 04-26-2024 DTaP,Tdap and Td Vaccines (2 - Td or Tdap) DTaP,Tdap and Td Vaccines (2 - Td or Tdap) [facility] Start: 04-26-2024 DTaP/Tdap/Td vaccine (2 - Td or Tdap) DTaP/Tdap/Td vaccine (2 - Td or Tdap) [facility] Start: 04-26-2024 DTaP/Tdap/Td vaccine (2 - Td) DTaP/Tdap/Td vaccine (2 - Td) [facility] Work Phone: Start: 04-10-2024 COVID-19 Vaccine ( season) COVID-19 Vaccine ( season) [facility] Start: 03-10-2024 Influenza vaccination Flu vaccine (# 1) [facility] Start: 11-21-2023 Hemoglobin A1c measurement A1C test (Diabetic or Prediabetic) [facility] Start: 09-26-2023 GFR test (Diabetes, CKD 3-4, OR last GFR 15-59) GFR test (Diabetes, CKD 3-4, OR last GFR 15-59) [facility] Start: 09-26-2023 Lipid panel Lipids [facility] Start: 08-22-2023 Depression Screen Depression Screen [facility] Start: 07-10-2023 End: 07-10-2023 Patient encounter procedure 07/10/2023 Office Visit Family Medicine Armando Alexis, COMBINER OPERATOR - [employer] [address] [place], [place] [id number] [facility] Start: 06-16-2023 Adult BMI Screening Adult BMI Screen ing [facility] Start: 06-16-2023 Tobacco Screening Tobacco Screening [facility] Start: 06-03-2023 Hemoglobin A1c measurement A1C test (Diabetic or Prediabetic) [facility] Start: 05-16-2023 Influenza vaccination [facility] Comment on above: Postponed from 03/10 (Patient Refused) Postponed from 03/10 (Patient Refused) Start: 05-16-2023 Pneumococcal 0-64 ye ars Vaccine (1 - PCV) Pneumococcal 0-64 years Vaccine (1 - PCV) [facility] Comment on above: Postponed from 05/03 (Patient Refused) Start: 05-16-2023 Urine screening for protein [facility] Start: 04-29-2023 End: 04-29-2023 Patient encounter procedure 04/29/2023 Appointment Pharmacy [facility] Medication Management Start: 04-10-2023 Influenza vaccination Influenza Vacc ine [facility] Start: 04-10-2023 End: 04-10-2023 Patient encounter procedure 04/10/2023 Appointment Pharmacy [facility] Medication Management Start: 04-06-2023 End: 04-06-2023 Patient encounter procedure 04/06/2023 Office Visit Family Medicine Armando Alexis, COMBINER OPERATOR - [employer] [address] [place] [address] [facility] Start: 04-04-2023 Depression Screen Depression Screen [facility] Start: 04-02-2023 End: 04-02-2023 Patient encounter procedure 04/02/2023 Office Visit UrologTangela Schumacher MD [address] [facility] [address] [place] [address] [facility] Start: 03-10-2023 Influenza vaccination Flu vaccine (# 1) [facility] Start: 02-27-2023 End: 02-27-2023 Patient encounter procedure 02/27/2023 Office Visit Family Medicine Armando Alexis, COMBINER OPERATOR - [employer] [address] [place] [address] [facility] Start: 02-24-2023 End: 02-24-2023 Patient encounter procedure 02/24/2023 Appointment Pharmacy [facility] Start: 02-19-2023 End: 02-19-2023 Patient encounter procedure 02/19/2023 Office Visit UrologTangela Schumacher MD [address] [address] [facility] Start: 02-03-2023 End: 02-03-2023 Patient encounter procedure 02/03/2023 Appointment Pharmacy [facility] Start: 12-03-2022 End: 12-03-2022 Patient encounter procedure 12/03/2022 Appointment Pharmacy [facility] Start: 11-28-2022 End: 11-28-2022 Patient encounter procedure 11/28/2022 Office Visit Family Medicine Armando Alexis, COMBINER OPERATOR - [employer] [address] [place] [address] [facility] Start: 11-20-2022 Hemoglobin A1c measurement A1C test (Diabetic or Prediabetic) [facility] [employer] Start: 11-20-2022 End: 11-20-2022 Patient encounter procedure 11/20/2022 Appointment Pharmacy [facility] Start: 10-30-2022 End: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
--- NOTE | 2024-09-21 11:44 | CT_ITS ---
The [address] [address] Patient Name: BOZENA SEO MRN: [id number] date: 1985 Sex: M Assigned Patient Location: ER Current Patient Location: ER Accession/Order Number: [id number] Exam Date: 09/21/2024 11:52 Report Date: 09/21/2024 12:31 At the request of: FABIOLA PATTERSON Procedure: CT head/brain wo con EXAMINATION: CT head/brain wo con, 09/21/2024 11:52 AM EST HISTORY: pain COMPARISON: None. TECHNIQUE: CT scan of the head was performed without IV contrast. CT dose reduction technique was used, including Automated Exposure Control. FINDINGS: BRAIN: No edema, hemorrhage, mass, acute infarction, or inappropriate atrophy. CSF SPACES: No hydrocephalus, subarachnoid hemorrhage, or mass. Appropriate for age. SKULL: No fracture, mass, or other significant visible lesion. SINUSES: No significant mucosal thickening or fluid on the limited views. ORBITS: No appreciable abnormality on the limited views. OTHER: Negative CT/CT head/brain wo con IMPRESSION: No acute intracranial abnormality Electronically authenticated by: VICKEY VELAZQUEZ Date: 09/21/2024 12:31
--- NOTE | 2024-09-21 11:44 | CT_ITS ---
The [place] [id number] Patient Name: BOZENA SEO MRN: [id number] date: 1985 Sex: M Assigned Patient Location: ER Current Patient Location: ER Accession/Order Number: [id number] Exam Date: 09/21/2024 11:52 Report Date: 09/21/2024 12:32 At the request of: FABIOLA PATTERSON Procedure: CT thoracic spine wo con PROCEDURE: CT thoracic spine wo con, CT cervical spine wo con, CT lumbar spine wo con COMPARISON: None. HISTORY: trauma TECHNIQUE: Axial, Coronal, and Sagittal CT images obtained without IV contrast. Dose reduction techniques were achieved by using automated exposure control and/or adjustment of mA and/or kV according to patient size and/or use of iterative reconstruction technique. FINDINGS: PARASPINAL AREA: Normal with no visible mass. DISCS: Mild multilevel disc space narrowing BONES: Normal alignment of the cervical, thoracic and lumbar vertebral bodies with no acute fracture or spondylolisthesis. Mild degenerative spondylosis and facet osteoarthropathy OTHER: No hyperattenuation identified within the central canal to suggest hemorrhage CT/CT thoracic spine wo con IMPRESSION: Mild degenerative changes with no acute traumatic abnormality of the cervical, thoracic or lumbar spine. Electronically authenticated by: VICKEY VELAZQUEZ Date: 09/21/2024 12:32
--- NOTE | 2024-09-21 11:44 | CT_ITS ---
The [address] [address] Patient Name: BOZENA SEO MRN: [id number] date: 1985 Sex: M Assigned Patient Location: ER Current Patient Location: ER Accession/Order Number: [id number] Exam Date: 09/21/2024 11:52 Report Date: 09/21/2024 12:32 At the request of: FABIOLA PATTERSON Procedure: CT cervical spine wo con PROCEDURE: CT thoracic spine wo con, CT cervical spine wo con, CT lumbar spine wo con COMPARISON: None. HISTORY: trauma TECHNIQUE: Axial, Coronal, and Sagittal CT images obtained without IV contrast. Dose reduction techniques were achieved by using automated exposure control and/or adjustment of mA and/or kV according to patient size and/or use of iterative reconstruction technique. FINDINGS: PARASPINAL AREA: Normal with no visible mass. DISCS: Mild multilevel disc space narrowing BONES: Normal alignment of the cervical, thoracic and lumbar vertebral bodies with no acute fracture or spondylolisthesis. Mild degenerative spondylosis and facet osteoarthropathy OTHER: No hyperattenuation identified within the central canal to suggest hemorrhage CT/CT cervical spine wo con IMPRESSION: Mild degenerative changes with no acute traumatic abnormality of the cervical, thoracic or lumbar spine. Electronically authenticated by: VICKEY VELAZQUEZ Date: 09/21/2024 12:32
--- NOTE | 2024-09-21 11:44 | CT_ITS ---
The [address] [address] Patient Name: BOZENA SEO MRN: [id number] date: 1985 Sex: M Assigned Patient Location: ER Current Patient Location: ER Accession/Order Number: [id number] Exam Date: 09/21/2024 11:52 Report Date: 09/21/2024 12:32 At the request of: FABIOLA PATTERSON Procedure: CT lumbar spine wo con PROCEDURE: CT thoracic spine wo con, CT cervical spine wo con, CT lumbar spine wo con COMPARISON: None. HISTORY: trauma TECHNIQUE: Axial, Coronal, and Sagittal CT images obtained without IV contrast. Dose reduction techniques were achieved by using automated exposure control and/or adjustment of mA and/or kV according to patient size and/or use of iterative reconstruction technique. FINDINGS: PARASPINAL AREA: Normal with no visible mass. DISCS: Mild multilevel disc space narrowing BONES: Normal alignment of the cervical, thoracic and lumbar vertebral bodies with no acute fracture or spondylolisthesis. Mild degenerative spondylosis and facet osteoarthropathy OTHER: No hyperattenuation identified within the central canal to suggest hemorrhage CT/CT lumbar spine wo con IMPRESSION: Mild degenerative changes with no acute traumatic abnormality of the cervical, thoracic or lumbar spine. Electronically authenticated by: VICKEY VELAZQUEZ Date: 09/21/2024 12:32
--- NOTE | 2024-09-21 12:09 | ED_ITS ---
HPI HPI - Head Injury General Chief complaint: Head Injury Stated complaint: FALL, HEAD INJURY Time Seen by Provider: 09/21/24 11:30 Source: patient Mode of arrival: walk-in History of Present Illness HPI Narrative: Patient presents to ED after a fall. He suffered a fall yesterday on ice. He said he slipped and fell and landed on his back and head. He complains of mid and low back pain as well as neck pain and headache. He does not think he lost consciousness but said it gave him some stars when he fell and hit his head. No nausea vomiting. No neurological deficit. Patient said when he woke up today h e was more sore than yesterday. He took some medication that he has for his hand and wrist from the past but it was not helping the pain. He was concerned so he came in for further evaluation. Related Data Home Medications ?Medication ?Instructions ?Recorded ?Confirmed diclofenac sodium 75 mg 75 mg PO BID 09/21/24 09/21/24 tablet,delayed release lisinopril 2.5 mg tablet 2.5 mg PO QPM 09/21/24 09/21/24 meloxicam 7.5 mg tablet 7.5 mg PO BID 09/21/24 09/21/24 metformin 500 mg tablet,extended 1,000 mg PO BID 09/21/24 09/21/24 release 24 hr omeprazole 20 mg capsule,delayed 20 mg PO DAILY 09/21/24 09/21/24 release Allergies Allergy/AdvReac Type Severity Reaction Status Date / Time No Known Drug Allergies Allergy Verified 09/15/24 23:27 Opioid HPI Opioid Management Most Recent Pain and Opioid Data: No Data to Display Review of Systems ROS Status of ROS 10 or more systems reviewed and unremark able except as noted in history and below PFSH PFSH Social History Little interest or pleasure in doing things: not at all Feeling down, depressed, or hopeless: not at all Exam Narrative Exam Narrative: Time Seen: [] Vital Signs: [Per nurse's notes.] General: [Alert] Skin: [Warm, dry, no rash.] Head: [Normocephalic, small area of erythema on the left occipital aspect of the scalp Neck: [Supple, trachea midline.] Mild tenderness C-spine midline Eye: [Pupils are equal, round and reactive to light, extraocular movements are intact, normal conjunctiva.] Ears, nose, mouth and throat: oral mucosa moist. Cardiovascular: [Regular rate and rhythm, no murmur.] Respiratory: [Lungs are clear to auscultation, respirations are non-labored, breath sounds are equal.] Chest wall: [No tenderness, no deformity.] Gastrointestinal: [Soft, nontender, non distended, normal bowel sounds.] MSK: 5 out of 5 muscle strength x 4 extremities no calf pain or edema. Tenderness to palpation in the mid back and low back midline and paraspinal. Normal distal pulses and sensation no lower extremity neurological deficit Lymphatics: [No lymphadenopathy.] Psychiatric: [Cooperative, appropriate mood & affect.] Neurological: [Alert and oriented to person, place, time, and situation, no focal neurological deficit observed.] Constitutional Vital Signs, click to edit/add: Last Vital Signs Temp 98.1 F 09/21/24 11:02 Pulse 72 09/21/24 11:02 Resp 16 09/21/24 11:02 BP 134/88 09/21/24 11:02 Pulse Ox 99 09/21/24 11:02 O2 Del Method Room Air 09/21/24 11:02 Course Vital Signs Vital signs: Vital Signs Temperature 98.1 F 09/21/24 11:02 Pulse Rate 72 09/21/24 11:02 Respiratory Rate 16 09/21/24 11:02 Blood Pressure 134/88 09/21/24 11:02 Pulse Oximetry 99 09/21/24 11:02 Oxygen Delivery Method Room Air 09/21/24 11:02 Temperature 98.1 F 09/21/24 11:02 Pulse Rate 72 09/21/24 11:02 Respiratory Rate 16 09/21/24 11:02 Blood Pressure 134/88 09/21/24 11:02 Pulse Oximetry 99 09/21/24 11:02 Oxygen Delivery Method Room Air 09/21/24 11:02 MDM - Head Injury MDM Narrative Medical decision making narrative: CT head neck back and lumbar are all negative for any acute findings. Patient instructed to take Tylenol and Motrin for any pain at home. He requested today and tomorrow off work. Return to ER if worsening symptoms otherwise follow-up with family doctor as needed. Most likely muscle strains and contusion with a mild head injury from the fall. Patient comfortable care plan for home Differential Diagnosis Differential diagnosis: Likely concussion without loss of consciousness, closed head injury, postconcussion syndrome and other (Thoracic and lumbar strain) Imaging Data CT scan - abdomen: Radiologist's impression: ITS Impressions Cervical Spine CT 09/21/24 11:44 IMPRESSION: Mild degenerative changes with no acute traumatic abnormality of the cervical, thoracic or lumbar spine. Electronically authenticated by: VICKEY VELAZQUEZ Date: 09/21/2024 12:[address] 09/21/24 11:44 IMPRESSION: No acute intracranial abnormality Electronically authenticated by: VICKEY VELAQZUEZ Date: 09/21/2024 12:[address] 09/21/24 11:44 IMPRESSION: Mild degenerative changes with no acute traumatic abnormality of the cervical, thoracic or lumbar spine. Electronically authenticated by: VICKEY VELAZQUEZ Date: 09/21/2024 12:[address] 09/21/24 11:44 IMPRESSION: Mild degenerative changes with no acute traumatic abnormality of the cervical, thoracic or lumbar spine. Electronically authenticated by: VICKEY VELAZQUEZ Date: 09/21/2024 12:32 Discharge Plan Discharge Chief Complaint: Head Injury Clinical Impression: Closed head injury Patient Disposition: Home, Self-Care Time of Disposition Decision: 12:39 Condition: Good Mode of Transportation: Private Vehicle Prescriptions / Home Meds: No Action diclofenac sodium 75 mg tablet,delayed release (DR/EC) 75 mg PO BID lisinopril 2.5 mg tablet 2.5 mg PO QPM meloxicam 7.5 mg tablet 7.5 mg PO BID metformin 500 mg tablet extended release 24 hr 1,000 mg PO BID omeprazole 20 mg capsule,delayed release(DR/EC) 20 mg PO DAILY Print Language: Anguill[place] Instructions: Head Injury (ED) Referrals: Physician,Non-Staff, MD [Primary Care Provider] - 1 week
[2024-09-21 12:58] VITALS: BP 127/93; PULSE 83; O2SAT 98
== END 2024-09-21 13:01 | disposition home or self-care (01) ==
PROVIDERS: Emergency Provider Emergency Medicine
DX: S09.8XXA Other specified injuries of head, initial encounter (principal); W00.0XXA Fall on same level due to ice and snow, initial encounter; M54.2 Cervicalgia; M54.50 Low back pain, unspecified
CPT/HCPCS: 70450; 72125; 72128; 72131; 99284